=== PATIENT | male | born 1965 | race Caucasian/White ===

== ENCOUNTER 2016-07-29 17:46 | Emergency (ER) | payer MEDICAID ==
[2016-07-29 17:51] VITALS: BP 117/72; PULSE 96; RESP 18; TEMP 98.1; O2SAT 97
--- NOTE | 2016-07-29 17:52 | CPEKG ---
Heart Rate: 96 RR Interval: 625 P-R Interval: 196 QRSD Interval: 88 QT Interval: 364 QTC Interval: 460 P Bucklin: 64 QRS Bucklin: 57 T Wave Bucklin: 64 EKG Severity - NORMAL ECG - EKG Impression: SINUS RHYTHM Electronically Signed By: Gela Nguyễn 29-Jul-2016 20:29:23
--- NOTE | 2016-07-29 18:01 | EDPHY ---
H & P HPI/ROS: CHIEF COMPLAINT: chest pain HISTORY OF PRESENT ILLNESS: Patient is a 51-year-old male with history of hypertension who presents emergency department with a pressure in my chest. Patient stated his pain started approximately 3-4 hours ago. It does not radiate. He has no nausea, vomiting or diaphoresis. No recent trauma or fall. No recent cough or fever. The patient denies leg pain or swelling. Patient is homeless. The patient walked up to EMS is alert them to his chest pain. He was given aspirin and nitroglycerin. REVIEW OF SYSTEMS: My complete review of systems is negative except as mentioned in the HPI. Past Medical/Surgical History: Hypertension Social history: The patient is homeless. The patient smokes and uses alcohol. He denies drug use. Smoking Status: Heavy smoker Physical Exam: Vitals noted GENERAL: Well-appearing, in no acute distress, alert. HEENT: Eyes normal to inspection, normal pharynx, no signs of dehydration. NECK: No thyromegaly, no lymphadenopathy, supple. RESPIRATORY: Clear to auscultation bilaterally, no rales, rhonchi or wheezing. CVS: Regular rate and rhythm, no rubs, murmurs, or gallops. No chest wall tenderness palpation ABDOMEN: Soft, nontender, nondistended, no organomegaly. BACK: Normal to inspection, no CVA tenderness. SKIN: Normal color, no rash, warm, dry. No pallor. EXTREMITIES: No pedal edema, no calf tenderness, no Homans sign or cords, no joint swelling. NEURO/PSYCH: Alert and oriented x3, normal mood and affect, normal motor sensory exam. No obvious cranial nerve deficit. Constitutional: Initial Vital Signs Temperature (C) 36.7 C 07/29/16 17:50 Heart Rate 96 07/29/16 17:50 Respiratory Rate 18 07/29/16 17:50 Blood Pressure 117/72 07/29/16 17:50 O2 Sat (%) 97 07/29/16 17:50 O2 Delivery Mode Room Air Allergies/Adverse Reactions: No Known Allergies Allergy (Verified 07/15/15 21:42) Home Medications: Medication Instructions Recorded NK [No Known Home Meds] 07/29/16 Medical Decision Making ED Course/Re-evaluation: In the emergency department I met EMS on arrival. I took report from the copy and print associate. Laboratory studies, EKG and chest x-ray were ordered. I discussed the plan with the patient and answered all his questions. EKG shows normal sinus rhythm, normal rate, normal axis, normal intervals. There are no ST or T-wave abnormalities. EKG is normal as interpreted by me. Patient's troponin was negative. His lipase was elevated 5 3. D-dimer mildly elevated. Because of this CT angiogram was ordered. I discussed this with the patient and answered all his questions. CT angiogram of the chest: Please refer the dictated report. No pulmonary embolus. I did review the images with the radiologist. I reviewed the patient' s pancreas as well. Appeared normal size. I discussed the result with the patient. On repeat examination he was doing well and he was standing at his bedside going through his belongings. On repeat exam he had no respiratory distress. He had no epigastric tenderness palpation. I discussed all results and the need for close follow-up. The patient was given warnings prior to leaving. He will return with worsening symptoms. Differential Diagnosis: My differential includes but is not limited to ACS, acute MS, myocarditis, pericarditis, aortic aneurysm, dissection, pulmonary embolus, pneumonia, pneumothorax - Data Points Laboratory Results: Laboratory Results 07/29/16 17:34 07/29/16 17:34 07/29/16 17:34 WBC 6.50 10^3/uL (3.80-9.50) RBC 4.54 10^6/uL (4.40-6.38) Hgb 15.9 g/dL (13.7-17.5) Hct 43.8 % (40.0-51.0) MCV 96.5 fL (81.5-99.8) MCH 35.0 H pg (27.9-34.1) MCHC 36.3 g/dL (32.4-36.7) RDW 13.4 % (11.5-15.2) Plt Count 128 L 10^3/uL (150-400) MPV 9.3 fL (8.7-11.7) Neut % (Auto) 21.0 L % (39.3-74.2) Lymph % (Auto) 71.2 H % (15.0-45.0) Sawyer % (Auto) 5.8 % (4.5-13.0) Eos % (Auto) 1.4 % (0.6-7.6) Baso % (Auto) 0.6 % (0.3-1.7) Nucleat RBC Rel Count 0.0 % (0.0-0.2) Absolute Neuts (auto) 1.36 L 10^3/uL (1.70-6.50) Absolute Lymphs (auto) 4.63 H 10^3/uL (1.00-3.00) Absolute Monos (auto) 0.38 10^3/uL (0.30-0.80) Absolute Eos (auto) 0.09 10^3/uL (0.03-0.40) Absolute Basos (auto) 0.04 10^3/uL (0.02-0.10) Absolute Nucleated RBC 0.00 10^3/uL (0-0.01) Immature Gran % 0.0 % (0.0-1.1) Immature Gran # 0.00 10^3/uL (0.00-0.10) D-Dimer 0.90 H ug/mLFEU (0.00-0.50) Sodium 145 H mEq/L (134-144) Potassium 3.7 mEq/L (3.5-5.2) Chloride 104 mEq/L (97-110) Carbon Dioxide 24 mEq/l (22-31) Anion Gap 17 mEq/L (8-16) BUN 9 mg/dL (7-23) Creatinine 0.8 mg/dL (0.7-1.3) Estimated GFR > 60 Glucose 173 H mg/dL (70-100) Calcium 8.4 L mg/dL (8.5-10.4) Total Bilirubin 0.9 mg/dL (0.1-1.4) Conjugated Bilirubin 0.4 mg/dL (0.0-0.5) Unconjugated Bilirubin 0.5 mg/dL (0.0-1.1) AST 156 H IU/L (17-59) ALT 112 H IU/L (21-72) Alkaline Phosphatase 70 IU/L (38-126) Troponin I < 0.012 ng/mL (0-0.034) Total Protein 7.1 g/dL (6.3-8.2) Albumin 3.9 g/dL (3.5-5.0) Lipase 502.0 H IU/L (23-300) Departure - Departure Disposition: Home, Routine, Self-Care Clinical Impression: Chest pain Qualifiers: Chest pain type: precordial pain Qualifier Code: (R07.2) Precordial pain Condition: Good Instructions: Chest Pain (ED) Additional Instructions: Return with increasing chest pain, abdominal pain, nausea vomiting or any other concerns. Referrals: [facility] [Outside] - 2-3 days without fail
[2016-07-29 18:06] LABS: ADD DIFF? NO; ADD MORPH? NO; ADD SCAN? NO; ATYPICAL LYMPHOCYTE FLAG 0 (0-99); FRAGMENT RBC FLAG 0 (0-99); HEMATOCRIT 43.8 % (40.0-51.0); HEMOGLOBIN 15.9 g/dL (13.7-17.5); LEFT SHIFT FLG 0 (0-99); LIPEMIA HEMOLYSIS FLAG 90 (0-99); MEAN CELL HEMOGLOBIN CONCENTR. 36.3 g/dL (32.4-36.7); MEAN CELL VOLUME 96.5 fL (81.5-99.8); MEAN PLATELET VOLUME 9.3 fL (8.7-11.7); PLATELET CLUMPS FLAG 10 (0-99); PLATELET COUNT 128 10^3/uL (150-400); RED BLOOD CELL COUNT 4.54 10^6/uL (4.40-6.38); RED CELL DISTRIBUTION WIDTH 13.4 % (11.5-15.2)
[2016-07-29 18:11] LABS: ALANINE AMINOTRANSFERASE 112 IU/L (21-72); ALBUMIN 3.9 g/dL (3.5-5.0); ALKALINE PHOSPHATASE 70 IU/L (38-126); ANION GAP 17 mEq/L (8-16); ASPARTATE AMINOTRANSFERASE 156 IU/L (17-59); BILIRUBIN,TOTAL 0.9 mg/dL (0.1-1.4); BILIRUBIN-CONJUGATED 0.4 mg/dL (0.0-0.5); BILIRUBIN-UNCONJUGATED 0.5 mg/dL (0.0-1.1); CALCIUM 8.4 mg/dL (8.5-10.4); CARBON DIOXIDE 24 mEq/l (22-31); CHLORIDE 104 mEq/L (97-110); CREATININE 0.8 mg/dL (0.7-1.3); GLOMERULAR FILTRATION RATE > 60; GLUCOSE 173 mg/dL (70-100); POTASSIUM 3.7 mEq/L (3.5-5.2); SODIUM 145 mEq/L (134-144); TOTAL PROTEIN 7.1 g/dL (6.3-8.2)
[2016-07-29 18:23] LABS: TROPONIN I < 0.012 ng/mL (0-0.034)
--- NOTE | 2016-07-29 18:56 | DX ---
Chest, Two Views at 1808 hours History: Chest pain. Comparison: August 2015 Findings: Cardiac silhouette is within normal range. No pneumonia, congestive heart failure, pleural effusion, or pneumothorax. Impression: No acute pulmonary disease.
[2016-07-29] MEDS ORDERED: IOPAMIDOL (ISOVUE 370) 100 ML BTL IV ONE (19:20)
--- NOTE | 2016-07-29 20:20 | CT ---
CT Chest Pulmonary Angiogram With Contrast Enhancement and Multiplanar Reconstructions 2016 at 1931 Hours History: Left-sided chest pain, smoker, elevated D-dimer. Comparison: July 2015. Technique: 1.25-mm axial multidetector helical CT angiogram imaging was performed through the chest w hile 90 mL Isovue-370 were injected intravenously without complication. The images were then transfe rred to an independent workstation where multiplanar and three-dimensional reconstructions were perfo rmed by the interpreting physician and reviewed at multiple windows. Dose reduction techniques were u tilized. CT Pulmonary Angiogram Findings: No CT evidence of definite pulmonary thromboemboli. No aortic aneur ysm or dissection. Heart is normal in size. Coronary atherosclerosis. CT Chest Findings: No pericardial effusion, pleural effusion, or pneumothorax. No suspicious pulmonar y nodules or acute pneumonia. No significant adenopathy. Limited upper abdomen demonstrates hepatic s teatosis. Impressions: 1. No definite pulmonary thromboemboli. 2. No pneumonia, pleural effusion, or pneumothorax. 3. Coronary atherosclerosis. 4. No aortic dissection or aneurysm. 5. Hepatic steatosis. Findings and recommendations discussed with Dr. Nguyễn at 1955 hours.
== END 2016-07-29 20:19 | disposition home or self-care (01) ==
LOC: EDUNIT#
DX: R07.2 Precordial pain (principal); I10 Essential (primary) hypertension; F17.200 Nicotine dependence, unspecified, uncomplicated
CPT/HCPCS: Q9967

== ENCOUNTER 2016-08-08 15:32 | Emergency (ER) | payer MEDICAID ==
[2016-08-08 15:43] VITALS: TEMP 98.2
[2016-08-08] MEDS ORDERED: NS 500 ML IV ONE (15:48)
--- NOTE | 2016-08-08 15:58 | EDPHY ---
H & P Time Seen by Provider: 08/08/16 15:42 HPI/ROS: HPI Leaning to right. 51-year-old male by ambulance. Patient reports that all day he has been walking to the right and leaning to the right. He denies any other complaints. He has a history of alcohol abuse. He is homeless. His last drink was yesterday. ROS: Constitutional: No fever, no chills. No weakness. As above Eyes: No discharge. No changes in vision. ENT: No sore throat. No nasal congestion or rhinorrhea. Respiratory: No cough. No shortness of breath. Cardiac: No chest pain, no palpitations. Gastrointestinal: No abdominal pain, no vomiting, no diarrhea. Genitourinary: No hematuria. No dysuria or increased frequency with urination. Musculoskeletal: No back pain. No neck pain. No myalgias or arthralgias. Skin: No rashes. Neurological: No headache. No focal weakness or altered sensation. As above. Past medical history: Bipolar, alcohol abuse, hypertension, PE, reflux. Social history: Here by himself. Homeless. As above. Denies IV drugs or street drugs. Physical Exam: General Appearance: Alert, no distress. Disheveled. This patient is responding to questions appropriately and in full sentences. This patient appears well-hydrated and well-nourished. Eyes: Pupils equal and round no pallor or injection. No lid edema, erythema or injection. ENT, Mouth: Mucous membranes are moist. The pharyngeal tissues are unremarkable. No edema or swelling. No asymmetry suggestive of abscess. No erythema or exudates. Bilateral external auditory canals are unremarkable. Some cerumen noted. Tympanic membranes are normal. Respiratory: There are no retractions, lungs are clear to auscultation with good air movement bilaterally. Cardiovascular: Regular rate and rhythm. No murmur. Gastrointestinal: Abdomen is soft and nontender, no masses, bowel sounds normal. No focal tenderness at McBurney's point. No Cervantes sign. Neurological: Motor sensory function is grossly intact. Cranial nerves are normal. Gait testing; he would walk normally and in a straight line, then suddenly veer to the right to the right. He denied any sensation of weakness in his right lower extremity during this evaluation but it appeared as if he would suddenly let his right knee start to buckle and give under his weight and then go to the right. On motor testing of his bilateral lower and upper extremities he has symmetric strength. His cerebellar function is normal. Skin: Warm and dry, no rashes. Musculoskeletal: Neck is supple and nontender. Extremities are symmetrical. All joints range without pain or impingement. Psychiatric: No agitation. No depression. Database: EKG: EKG time is 4:09 p.m.; EKG shows a narrow complex normal sinus rhythm with a ventricular rate of 86. The AR, QRS, QT intervals are within normal limits. There are no ST-T wave changes indicative of ischemic or injury pattern. No evidence of right heart strain. Interpreted by me. Imaging: CT scan of head without contrast: No acute pathology. Results were discussed with staff radiologist. Procedures: Emergency department course: IV established. Patient placed on a tin recovery worker. Patient given 500 cc of IV normal saline. EKG performed. Patient stated he was hungry and was given food and drink after CT imaging. 5:20 p.m., patient re-evaluated. Sleeping but easily arousable. Discussed EKG , CT scan and blood work results. Explained that the patient was significantly intoxicated on alcohol. He now admits to drinking through the day. He denies any right-sided weakness. He was up and ambulatory with a normal gait. Repeat neurologic assessment is nonfocal. He told me he was hungry and thirsty. Plan will be to discharge him to the [facility] with Librium prepack and protocol. Follow- up and return to emergency department precautions discussed. All of his questions were answered. He was discharged in good condition to the [facility] by taxi. Differential Diagnosis: The differential diagnosis on this patient includes but is not limited to alcohol intoxication, toxic metabolic problem, CVA, TIA, malingering. This represents a partial list of diagnoses considered. These considerations are based on history, physical exam, past history, reassessment and diagnostic testing. Smoking Status: Heavy smoker Constitutional: Initial Vital Signs Temperature (C) 36.8 C 08/08/16 15:41 Heart Rate 84 08/08/16 15:41 Respiratory Rate 16 08/08/16 15:41 Blood Pressure 117/77 08/08/16 15:41 O2 Sat (%) 93 08/08/16 15:41 O2 Delivery Mode Room Air Allergies/Adverse Reactions: No Known Allergies Allergy (Verified 07/15/15 21:42) Home Medications: Medication Instructions Recorded NK [No Known Home Meds] 07/29/16 Medical Decision Making - Data Points Laboratory Results: Laboratory Results 08/08/16 16:15 08/08/16 16:15 08/08/16 16:15 WBC 5.61 10^3/uL (3.80-9.50) RBC 4.60 10^6/uL (4.40-6.38) Hgb 15.7 g/dL (13.7-17.5) Hct 44.5 % (40.0-51.0) MCV 96.7 fL (81.5-99.8) MCH 34.1 pg (27.9-34.1) MCHC 35.3 g/dL (32.4-36.7) RDW 12.9 % (11.5-15.2) Plt Count 122 L 10^3/uL (150-400) MPV 8.0 L fL (8.7-11.7) Neut % (Auto) 33.9 L % (39.3-74.2) Lymph % (Auto) 56.9 H % (15.0-45.0) [place] % (Auto) 6.1 % (4.5-13.0) Eos % (Auto) 2.0 % (0.6-7.6) Baso % (Auto) 0.7 % (0.3-1.7) Nucleat RBC Rel Count 0.0 % (0.0-0.2) Absolute Neuts (auto) 1.91 10^3/uL (1.70-6.50) Absolute Lymphs (auto) 3.19 H 10^3/uL (1.00-3.00) Absolute Monos (auto) 0.34 10^3/uL (0.30-0.80) Absolute Eos (auto) 0.11 10^3/uL (0.03-0.40) Absolute Basos (auto) 0.04 10^3/uL (0.02-0.10) Absolute Nucleated RBC 0.00 10^3/uL (0-0.01) Immature Gran % 0.4 % (0.0-1.1) Immature Gran # 0.02 10^3/uL (0.00-0.10) Sodium 149 H mEq/L (134-144) Potassium 4.0 mEq/L (3.5-5.2) Chloride 111 H mEq/L (97-110) Carbon Dioxide 26 mEq/l (22-31) Anion Gap 12 mEq/L (8-16) BUN 12 mg/dL (7-23) Creatinine 1.0 mg/dL (0.7-1.3) Estimated GFR > 60 Glucose 121 H mg/dL (70-100) Calcium 7.6 L mg/dL (8.5-10.4) Ethyl Alcohol 414 H* mg/dL (0-10) Medications Given: Discontinued Medications Sodium Chloride (Ns) 500 mls @ 0 mls/hr IV ONCE ONE PRN Reason: Wide Open Stop: 08/08/16 15:49 Last Admin: 08/08/16 15:56 Dose: 500 mls Departure - Departure Disposition: Home, Routine, Self-Care Clinical Impression: Acute alcohol intoxication Condition: Good Instructions: Alcohol Intoxication (ED) Additional Instructions: Read and follow provided instructions. Librium to be administered by the [facility] staff. Do not abuse alcohol. Follow-up with your primary care physician in 1-2 days at the [facility], walk-in clinic for re-evaluation. Return to the emergency department for worsening symptoms or other serious concerns. Referrals: [facility] [Outside] - As per Instructions [facility] [Outside] - As per Instructions
--- NOTE | 2016-08-08 16:11 | CPEKG ---
Heart Rate: 86 RR Interval: 698 P-R Interval: 192 QRSD Interval: 82 QT Interval: 364 QTC Interval: 436 P Herrick: 74 QRS Herrick: 0 T Wave Herrick: 63 EKG Severity - OTHERWISE NORMAL ECG - EKG Impression: SINUS RHYTHM EKG Impression: VENTRICULAR PREMATURE COMPLEX Electronically Signed By: Javier Quick 09-Aug-2016 01:03:41
[2016-08-08 16:28] LABS: % IMMATURE GRANULYOCYTES 0.4 % (0.0-1.1); ABSOLUTE IMMATURE GRANULOCYTES 0.02 10^3/uL (0.00-0.10); ADD DIFF? NO; ADD MORPH? NO; ADD SCAN? NO; ATYPICAL LYMPHOCYTE FLAG 0 (0-99); FRAGMENT RBC FLAG 0 (0-99); HEMATOCRIT 44.5 % (40.0-51.0); HEMOGLOBIN 15.7 g/dL (13.7-17.5); LEFT SHIFT FLG 0 (0-99); LIPEMIA HEMOLYSIS FLAG 90 (0-99); MEAN CELL HEMOGLOBIN 34.1 pg (27.9-34.1); MEAN CELL HEMOGLOBIN CONCENTR. 35.3 g/dL (32.4-36.7); MEAN CELL VOLUME 96.7 fL (81.5-99.8); PLATELET CLUMPS FLAG 0 (0-99); PLATELET COUNT 122 10^3/uL (150-400); RED CELL DISTRIBUTION WIDTH 12.9 % (11.5-15.2)
[2016-08-08 16:47] LABS: ANION GAP 12 mEq/L (8-16); CALCIUM 7.6 mg/dL (8.5-10.4); CARBON DIOXIDE 26 mEq/l (22-31); CHLORIDE 111 mEq/L (97-110); GLOMERULAR FILTRATION RATE > 60; GLUCOSE 121 mg/dL (70-100); SODIUM 149 mEq/L (134-144)
--- NOTE | 2016-08-08 16:57 | CT ---
CT of the Head (Without Contrast) Indication: Leaning towards the right. EtOH. Technique: Standard noncontrast head CT protocol utilizing 5 mm thick collimated slices and field of view 23 cm. Dose reduction techniques were utilized. Findings: No intracranial hemorrhage or mass. There is mild periventricular white matter disease. Jacob tricles are normal in size. Vessels are of symmetric density. Paranasal sinuses are clear. Impression: Nothing acute intracranially. Findings were discussed with Dr. Javier Ojeda.
[2016-08-08 17:04] LABS: ETHANOL SERUM 414 mg/dL (0-10)
[2016-08-08] MEDS ORDERED: CHLORDIAZEPOXIDE 25MG PREPK#6 BTL TAKEHOME ONE (17:57)
[2016-08-08 18:13] VITALS: BP 120/76; PULSE 101; RESP 18; O2SAT 92
== END 2016-08-08 18:39 | disposition home or self-care (01) ==
LOC: EDUNIT#
DX: F10.129 Alcohol abuse with intoxication, unspecified (principal); I10 Essential (primary) hypertension; F17.200 Nicotine dependence, unspecified, uncomplicated
CPT/HCPCS: G0480

== ENCOUNTER 2016-08-11 16:27 | Emergency (ER) | payer MEDICAID ==
[2016-08-11 16:30] VITALS: BP 145/77; PULSE 111; RESP 20; TEMP 97.2; O2SAT 93
--- NOTE | 2016-08-11 16:31 | EDPHY ---
HPI/HX/ROS/PE/MDM Narrative: CHIEF COMPLAINT: Intoxication, combative HPI: The patient is a homeless 51 y/o male arriving via EMS due to intoxication and combativeness. The patient has been rapidly swinging back and forth between combative and threatening to apologetic with EMS. He is complaining about not having eaten in 2 days. EMS says he smells of alcohol and was unable to stand or walk on scene, but denies alcohol or illicit drug use. He is oriented to name only and thinks it is 1990. Friends on scene told EMS he fell and struck his head, though EMS didn't see external evidence of trauma. He was largely uncooperative with EMS throughout transport. Per EMS, he described himself as "Ronald Hitler" and "psychotic murderer" and made several threatening gestures and statements to them. [facility] removed several weapons from him prior to transport. While in the ED, he has been antagonizing staff threatening to fight people and yelling "I've killed people" and "can you get me something fucking to eat!" "right fucking now!" REVIEW OF SYSTEMS: Aside from elements discussed in the HPI, a comprehensive 10-point review of systems was reviewed and is negative. PMH: Alcoholism, PE/DVT, bipolar disorder, hypertension, reflux Prior medical records reviewed including ED visit 08/08/16 for "leaning to the right" and admission 06/21/15 for shortness of breath and chest pain. SOCIAL HISTORY: Homeless, smoker PHYSICAL EXAM: General:Patient is alert, aggressive, in no acute distress. ENT:Eyes are normal to inspection. ENT inspection normal. Neck: Normal inspection. Full range of motion. Respiratory:No respiratory distress. Breath sounds normal bilaterally. Cardiovascular: Regular rate and rhythm. Strong peripheral pulses. Normal cap refill. Abdomen:The abdomen is nontender to palpation. There are no peritoneal signs. There are normal bowel sounds. Back: Normal to inspection. No tenderness to palpation. Skin: Normal color. No rash. Warm and dry. Extremities: Normal appearance. Full range of motion. Neuro: Oriented x1. Moving all 4 extremities, walking in and out of room. ED Course: EtOH serum ordered. Patient has been yelling threats at staff while in the ED and pacing in and out of the room. [facility] has been contacted and will take him to the [facility]. - Data Points Laboratory Results: 08/11/16 16:25 Ethyl Alcohol Pending General Initial Vital Signs: Initial Vital Signs Temperature (C) 36.2 C 08/11/16 16:27 Heart Rate 111 H 08/11/16 16:27 Respiratory Rate 20 08/11/16 16:27 Blood Pressure 145/77 H 08/11/16 16:27 O2 Sat (%) 93 08/11/16 16:27 O2 Delivery Mode Room Air Allergies/Adverse Reactions: No Known Allergies Allergy (Verified 07/15/15 21:42) Home Medications: Medication Instructions Recorded NK [No Known Home Meds] 07/29/16 Departure - Departure Disposition: Home, Routine, Self-Care Clinical Impression: Alcohol intoxication, Aggression Condition: Good Instructions: Alcohol Intoxication (ED) Additional Instructions: Go directly to the [facility]. Referrals: [facility] [Outside] - As per Instructions Report Scribed for: Rafat Stewart Report Scribed by: Dariela Arrieta Date of Report: 08/11/16 Time of Report: 16:29 Physician Review and Approval Statement: Portions of this note were transcribed by an ED scribe. I personally performed the history, physical exam, and medical decision making; and confirm the accuracy of the information in the transcribed note.
[2016-08-11 17:00] LABS: ETHANOL SERUM 460 mg/dL (0-10)
== END 2016-08-11 16:57 | disposition home or self-care (01) ==
DX: F10.129 Alcohol abuse with intoxication, unspecified (principal); F91.8 Other conduct disorders; I10 Essential (primary) hypertension; F17.200 Nicotine dependence, unspecified, uncomplicated
CPT/HCPCS: G0480

== ENCOUNTER 2016-08-18 23:54 | Emergency (ER) | payer MEDICAID ==
[2016-08-19] VITALS: BP 135/64; PULSE 81; RESP 16; TEMP 97.9; O2SAT 96
--- NOTE | 2016-08-19 00:05 | EDPHY ---
H & P HPI/ROS: HPI The patient presents with alcohol intoxication. He was found heavily intoxicated at a warming halfway. 911 was called. He said that he had been drinking a lot of hard alcohol throughout the course of the day today. He was nonambulatory. He denies any other complaints. In the ambulance, glucose was checked and it was 125. He was put on supplemental oxygen.. REVIEW OF SYSTEMS Constitutional: No fever, no chills. Eyes: No discharge. ENT: No sore throat. Cardiovascular: No chest pain, no palpitations. Respiratory: No cough, no shortness of breath. Gastrointestinal: No abdominal pain, no vomiting. Genitourinary: No hematuria. Musculoskeletal: No back pain. Skin: No rashes. Neurological: No headache. PHYSICAL General Appearance: Alert, obviously intoxicated Eyes: Pupils equal and round no pallor or injection ENT, Mouth: Mucous membranes moist Respiratory: There are no retractions, lungs are clear to auscultation Cardiovascular: Regular rate and rhythm Gastrointestinal: Abdomen is soft and non-tender, no masses, bowel sounds normal Neurological: A&O, moves all extremities Skin: Warm and dry, no rashes Musculoskeletal: Neck is supple non tender Extremities: symmetrical, full range of motion Psychiatric: Patient is oriented X 3, there is no agitation Source: Patient Exam Limitations: No limitations - Personal History Tetanus Vaccine Date: 2014 - Medical/Surgical History Hx Asthma: No Hx Chronic Respiratory Disease: No Hx Diabetes: No Hx Cardiac Disease: No Hx Renal Disease: No Hx Cirrhosis: No Hx Alcoholism: Yes Hx HIV/AIDS: No Hx Splenectomy or Spleen Trauma: No Other PMH: Bipolar, ETOH, HTN, PE, reflux - Social History Smoking Status: Heavy smoker Constitutional: Initial Vital Signs Temperature (C) 36.6 C 08/18/16 23:57 Heart Rate 81 08/18/16 23:57 Respiratory Rate 16 08/18/16 23:57 Blood Pressure 135/64 H 08/18/16 23:57 O2 Sat (%) 96 08/18/16 23:57 O2 Delivery Mode Room Air Allergies/Adverse Reactions: No Known Allergies Allergy (Verified 08/18/16 23:57) Home Medications: Medication Instructions Recorded NK [No Known Home Meds] 07/29/16 Medical Decision Making ED Course/Re-evaluation: 11:45 p.m.- I met the paramedics at the bedside to obtain their report. The patient appears stable. 12:00 a.m.- The patient was able to ambulate to the bathroom without difficulty. He will be [facility], [facility] to [facility] or a warming halfway. 12:20 a.m.- Police came to take the patient to a warming halfway. Departure - Departure Disposition: Home, Routine, Self-Care Clinical Impression: Alcohol dependence Alcohol intoxication Qualifiers: Complication of substance-induced condition: uncomplicated Qualifier Code: ( F10.120) Alcohol abuse with intoxication, uncomplicated Condition: Good Instructions: Alcohol Intoxication (ED) Referrals: [facility] [Outside] - As per Instructions
== END 2016-08-19 00:23 | disposition home or self-care (01) ==
LOC: EDUNIT#
DX: F10.220 Alcohol dependence with intoxication, uncomplicated (principal); F17.200 Nicotine dependence, unspecified, uncomplicated; I10 Essential (primary) hypertension

== ENCOUNTER 2016-08-21 09:47 | Emergency (ER) | payer MEDICAID ==
[2016-08-21 10:04] VITALS: RESP 18
[2016-08-21] MEDS ORDERED: SKIN ADHESIVE (DERMABOND) 1 EACH TP ONE (10:12)
--- NOTE | 2016-08-21 10:12 | EDPHY ---
H & P Stated Complaint: etoh, unable to ambulate, uncooperative - Personal History Current Tetanus/Diphtheria Vaccine: Yes Current Tetanus Diphtheria and Acellular Pertussis (TDAP): Yes Tetanus Vaccine Date: 2014 - Medical/Surgical History Hx Asthma: No Hx Chronic Respiratory Disease: No Hx Diabetes: No Hx Cardiac Disease: No Hx Renal Disease: No Hx Cirrhosis: No Hx Alcoholism: Yes Hx HIV/AIDS: No Hx Splenectomy or Spleen Trauma: No Other PMH: Bipolar, ETOH, HTN, PE, reflux - Social History Smoking Status: Heavy smoker Time Seen by Provider: 08/21/16 10:03 HPI/ROS: CHIEF COMPLAINT: suspected alcohol intoxication HISTORY OF PRESENT ILLNESS: 51-year-old male brought in by EMS for suspected alcohol intoxication after his friends called 911. History of homelessness and alcoholism. He had was heard entering from the ambulance bay yelling, belligerent, aggressive, threatening staff. there are no reports of pre- hospital assault or fall. When I enter the room to examine the patient initially at 10:03 a.m. he is laying in a prone position by the front door of room 3, appears to have gotten himself out of bed and then had a syncopal episode or fallen. He is unable provide history as he repeatedly curses at me. He has a chin laceration and there is some blood on floor. He is cursing. REVIEW OF SYSTEMS: A ten point review of systems was performed and is negative with the exception of the items mentioned in the HPI PAST MEDICAL/SURGICAL HISTORY: Homeless. Unknown further past medical SOCIAL HISTORY: Per his friends, positive alcohol use PHYSICAL EXAM 1) GENERAL: poorly kept, smells of urine, laying in a prone position on the floor, placed back in the bed by ER staff. He is cursing, yelling 2) HEAD: Normocephalic, atraumatic 3) HEENT: Pupils equal, round, reactive to light bilaterally. Negative Horners. Nasopharynx, oropharynx, clear. No deformity or angulation of nose. No septal hematoma. No rhinorrhea. No oral trauma. Ears bilaterally with normal tympanic membranes. No hemotympanum. No fluid or blood in the external auditory canal. No raccoon eyes. No Bearden sign. Poor dentition with no signs of acute intraoral trauma TMJ bilaterally nontender, No intraoral bleeding ,facial bones nontender including the zygomatic arch, maxilla mandible. he has a left chin laceration measuring 2.5 cm. 4) NECK: No cervical collar is on. Cervical collar is placed at that time due to mechanism and suspected alcohol use 5) LUNGS: Clear to auscultation bilaterally, no wheezes, no rhonchi, no retractions. No obvious signs of trauma. No chest wall pain. No flaring, no grunting. Moving symmetrically. No crepitus. 6) HEART: Regular rate and rhythm, 7) ABDOMEN: No guarding, no rebound, no focal tenderness, no peritoneal signs, no signs of trauma, no ecchymosis 8) MUSCULOSKELETAL: Moving all extremities, no focal areas of tenderness, no obvious trauma. 9) BACK: No midline vertebral tenderness, no fluctuance, no step-off, no obvious trauma, no visual or palpable abnormality. 10) SKIN: chin laceration measuring 1 cm DIFFERENTIAL DIAGNOSIS: Not necessarily in any particular order, my differential diagnosis includes, but is not limited to, concussion, skull fracture, intraparenchymal contusion, subarachnoid, subdural and epidural hematoma, cervical fracture, mandible fracture. The patient understands that this diagnosis is provisional and can never be 100% accurate. (Evaristo Yi) Constitutional: Initial Vital Signs Temperature (C) 36.4 C 08/21/16 09:47 Heart Rate 104 H 08/21/16 09:47 Respiratory Rate 18 08/21/16 09:47 Blood Pressure 96/63 L 08/21/16 09:47 O2 Sat (%) 94 08/21/16 09:47 O2 Delivery Mode Room Air Allergies/Adverse Reactions: No Known Allergies Allergy (Verified 08/18/16 23:57) Home Medications: Medication Instructions Recorded NK [No Known Home Meds] 07/29/16 Medical Decision Making - Diagnostics Imaging: Noncontrast Head CT CT Facial Bones 1017 hours History: Alcohol use. Trauma. Headache and neck pain. Hit anterior jaw. Technique: Standard noncontrast head CT protocol utilizing axial images was acquired through the calvarium. Images were reconstructed in multiple planes as well. Dose reduction techniques were utilized. Thin spiral images were obtained through the face from just below the mandible to above the frontal sinuses. The data were reconstructed in the sagittal and coronal plane. I also performed 3D reconstructions at the workstation to help the ER physician and surgeon visualize fractures if surgery is contemplated. Dose reduction techniques were utilized. Findings: CT Head: The cerebral parenchyma has a normal attenuation throughout. There are no masses, intracranial hemorrhage, subdural collections, or evidence of recent cerebral infarction. The bones are unremarkable. The frontal sinuses remain opacified. Mild mucosal thickening is present associated with scattered ethmoid air cells. There is also mild mucosal thickening inferior left maxillary sinus stable in appearance. The sphenoid sinuses are clear as well as mastoid air cells.. CT facial bones: The facial bones are intact without evidence of fracture. The orbital globes are normal in contour. Soft tissues demonstrate no significant abnormality. The patient is edentulous off the alveolar ridge. The 4 front incisors remain as well as the right canine tooth. Left premolar and first molar tooth remain in place on the mandible. There is no mandible fracture or loosening of the remaining teeth. Dictated By: Marcus Lee MD CT Cervical Spine 1017 hours History: Recent trauma. Evaluate for possible cervical spine injury. Technique: Spiral imaging was obtained from the base of skull to the upper chest. Images were reconstructed at 1.25 mm slice thickness. Images were reconstructed in multiple planes. Dose reduction techniques were utilized. Findings: Vertebral body heights are well maintained. There are no subluxations. No fractures are seen. Moderate right-sided facet hypertrophy is noted at the C2-C3. The remainder of the facet joints are relatively normal. Incidental disk bulge is noted at C6-C7 with mild to moderate spinal stenosis suspected. Paravertebral soft tissues demonstrate no significant abnormality. Dictated By: Marcus Lee MD Images reviewed by myself (Evarisot Yi) Procedures: Procedure: Laceration repair with tissue adhesive Verbal consent was obtained from the patient. The chin laceration was scrubbed and explored to its base with a gloved finger. No foreign body seen, no foreign bodies palpated. There were no deep structures involved. The wound was repaired with tissue adhesive. The procedure was performed by myself. Patient has been informed that scarring will occur, although every effort has been made to minimize this. (Evaristo Yi) ED Course/Re-evaluation: 10:10 a.m.: I entered the patient's room for initial examination in room 3 of the emergency department he was found lying in a prone position with what appears to be a new chin laceration . He was placed in a cervical collar placed back in the bed and will be imaged. 10:35 a.m.: Re-evaluation he has self-extricated from a cervical collar and is threatening assault if I attempt to put it back on. Breathalyzer alcohol is 359. Awaiting CT imaging results 11:20 a.m.: His wound has been closed. He is sleeping. He is answering questions appropriately albeit cursing , yelling, threatening emergency department staff but no evidence of altered mental status. Doubt delirium tremens. No seizure activity. Plan [facility]. Case discussed Dr. Gladis Montalvo ([facility]) Other Provider: The patient wasevaluatedand managed by themsdlevel provider. Idiscussed the patient's presentation and course with thephysicianassistantor nurse practitionerand agree with theevaluation. My co-signature indicates that I have reviewed this chart and I agree with the findings and plan of care as documented. I am the secondary supervisingphysician. (Gladis Montalvo) - Data Points Medications Given: Discontinued Medications Octyl Cyanoacrylate (Dermabond) 1 each TP EDNOW ONE Stop: 08/21/16 10:13 Last Admin: 08/21/16 10:53 Dose: 1 each Departure - Departure Disposition: Home, Routine, Self-Care Clinical Impression: Alcohol intoxication Qualifiers: Complication of substance-induced condition: uncomplicated Qualified Code(s): F10.120 - Alcohol abuse with intoxication, uncomplicated Chin laceration Qualifiers: Encounter type: initial encounter Qualified Code(s): S01.81XA - Laceration without foreign body of other part of head, initial encounter Condition: Good Instructions: Laceration (ED), Alcohol Intoxication (ED), Skin Adhesive Care ( ED) Additional Instructions: ALTHOUGH THERE IS NO EVIDENCE OF SERIOUS HEAD INJURY AT THIS TIME, DELAYED SIGNS CAN APPEAR 24 TO 48 HOURS AFTER INJURY. WE RECOMMEND THAT YOU DESIGNATE A FRIEND OR FAMILY MEMBER TO OBSERVE YOU OVER THE NEXT FEW DAYS TO ENSURE THAT YOUR CONDITION IS PROGRESSING NORMALLY. PLEASE RETURN TO THE EMERGENCY DEPARTMENT (ED) IMMEDIATELY IF YOU HAVE INCREASED HEADACHE, PERSISTENT HEADACHE , VOMITING, WEAKNESS, CONFUSION OR VISUAL PROBLEMS. Referrals: [facility] [Outside] - 1-2 days without fail
--- NOTE | 2016-08-21 11:00 | CT ---
Noncontrast Head CT CT Facial Bones 1017 hours History: Alcohol use. Trauma. Headache and neck pain. Hit anterior jaw. Technique: Standard noncontrast head CT protocol utilizing axial images was acquired through the ca lvarium. Images were reconstructed in multiple planes as well. Dose reduction techniques were utiliz ed. Thin spiral images were obtained through the face from just below the mandible to above the frontal sinuses. The data were reconstructed in the sagittal and coronal plane. I also performed 3D reconst ructions at the workstation to help the ER physician and surgeon visualize fractures if surgery is c ontemplated. Dose reduction techniques were utilized. Findings: CT Head: The cerebral parenchyma has a normal attenuation throughout. There are no masses, intracran ial hemorrhage, subdural collections, or evidence of recent cerebral infarction. The bones are unre markable. The frontal sinuses remain opacified. Mild mucosal thickening is present associated with s cattered ethmoid air cells. There is also mild mucosal thickening inferior left maxillary sinus stab le in appearance. The sphenoid sinuses are clear as well as mastoid air cells.. CT facial bones: The facial bones are intact without evidence of fracture. The orbital globes are no rmal in contour. Soft tissues demonstrate no significant abnormality. The patient is edentulous off the alveolar ridge. The 4 front incisors remain as well as the right canine tooth. Left premolar and first molar tooth remain in place on the mandible. There is no mandible fracture or loosening of th e remaining teeth. Impression: 1. No acute intracranial abnormality seen. 2. Stable frontal, ethmoid, and left inferior maxillary sinus disease. 3. No evidence of facial bone fracture. Findings were discussed by telephone with Rafat Yi PA-C at 1058 hrs.
--- NOTE | 2016-08-21 11:04 | CT ---
CT Cervical Spine 1017 hours History: Recent trauma. Evaluate for possible cervical spine injury. Technique: Spiral imaging was obtained from the base of skull to the upper chest. Images were recons tructed at 1.25 mm slice thickness. Images were reconstructed in multiple planes. Dose reduction daxa hniques were utilized. Findings: Vertebral body heights are well maintained. There are no subluxations. No fractures are se en. Moderate right-sided facet hypertrophy is noted at the C2-C3. The remainder of the facet joints are relatively normal. Incidental disk bulge is noted at C6-C7 with mild to moderate spinal stenosis suspected. Paravertebral soft tissues demonstrate no significant abnormality. Impression: 1. No acute osseous abnormality seen about the cervical spine. 2. Right-sided facet hypertrophy at C2-C3. 3. Incidental mild to moderate disk bulge at C6-C7. Findings were discussed by telephone with Rafat Yi PA-C at 1058 hrs.
[2016-08-21 11:31] VITALS: BP 96/63; PULSE 104; TEMP 97.5; O2SAT 94
== END 2016-08-21 11:55 | disposition home or self-care (01) ==
LOC: EDUNIT#
PROC: 0HQ1XZZ Repair Face Skin, External Approach (ICD-10-PCS; principal; 2016-08-21)
DX: S01.81XA Laceration without foreign body of other part of head, initial encounter (principal); F10.120 Alcohol abuse with intoxication, uncomplicated; I10 Essential (primary) hypertension; F17.200 Nicotine dependence, unspecified, uncomplicated; X58.XXXA Exposure to other specified factors, initial encounter
CPT/HCPCS: L0172

== ENCOUNTER 2016-09-08 03:06 | Emergency (ER) | payer MEDICAID ==
--- NOTE | 2016-09-08 03:21 | EDPHY ---
H & P Time Seen by Provider: 09/08/16 03:10 HPI/ROS: Chief complaint: Alcohol and Almazan stay intoxication, agitation HPI: 51-year-old male brought in by EMS and police having been found intoxicated and belligerent on the street. Patient admitted to using alcohol and Almazan D this morning. He has been argumentative and belligerent with police but has not been combative. He has been eating to me that he has drunk a lot of vodka and some acid. States he is not currently hallucinating and that he has "finished his trip". Right now he is asking me if I would like to republican with him. He denies injury. No falls. No nausea or vomiting. No chest pain or shortness of breath. Denies any other ingestions. ROS: 10 point Review of Systems is negative except as noted in the HPI. Past medical history: Alcoholism Medications: None Allergies: No known drug allergies Physical exam: Gen: Awake, Alert, slurred speech, pleasant and friendly HEENT: Nose: no rhinorrhea Eyes: PERRLA, EOMI Mouth: Moist mucosa Neck: Supple, no JVD Chest: nontender, lungs clear to auscultation Heart: S1, S2 normal, no murmur Abd: Soft, non-tender, no guarding Back: no CVA tenderness, no midline tenderness Ext: no edema, non-tender Skin: no rash Neuro: CN II-XII intact, Sensation grossly intact, Strength 5/5 in bilateral upper and lower extremities - Personal History Tetanus Vaccine Date: 2014 - Medical/Surgical History Hx Asthma: No Hx Chronic Respiratory Disease: No Hx Diabetes: No Hx Cardiac Disease: No Hx Renal Disease: No Hx Cirrhosis: No Hx Alcoholism: Yes Hx HIV/AIDS: No Hx Splenectomy or Spleen Trauma: No Other PMH: Bipolar, ETOH, HTN, PE, reflux - Social History Smoking Status: Heavy smoker Constitutional: Initial Vital Signs Temperature (C) 36.4 C 09/08/16 03:23 Heart Rate 100 09/08/16 03:23 Respiratory Rate 16 09/08/16 03:23 Blood Pressure 106/74 09/08/16 03:23 O2 Sat (%) 94 09/08/16 03:23 O2 Delivery Mode Room Air Allergies/Adverse Reactions: No Known Allergies Allergy (Verified 09/08/16 03:22) Home Medications: Medication Instructions Recorded NK [No Known Home Meds] 07/29/16 Medical Decision Making ED Course/Re-evaluation: Patient is ambulatory being to the bathroom unassisted. He is awake alert. He has not required any medications. He is safe for discharge. Departure - Departure Disposition: Home, Routine, Self-Care Clinical Impression: Polysubstance abuse Condition: Good Instructions: Polysubstance Abuse (ED), Alcohol Intoxication (ED) Additional Instructions: Please try to decrease your alcohol consumption. Referrals: NONE *PRIMARY CARE P,. [Primary Care Provider] - As per Instructions [facility],. [Clinic] - As per Instructions
[2016-09-08 03:24] VITALS: RESP 16
[2016-09-08 09:14] VITALS: BP 100/54; PULSE 85; TEMP 97.7; O2SAT 98
== END 2016-09-08 09:32 | disposition home or self-care (01) ==
LOC: EDUNIT#
DX: F19.10 Other psychoactive substance abuse, uncomplicated (principal); I10 Essential (primary) hypertension; F17.200 Nicotine dependence, unspecified, uncomplicated

== ENCOUNTER 2016-09-10 18:29 | Emergency (ER) | payer MEDICAID ==
[2016-09-10 18:40] VITALS: BP 108/61; PULSE 74; RESP 16; TEMP 97.9; O2SAT 93
[2016-09-10] MEDS ORDERED: NS 1,000 ML IV ONE (19:00)
--- NOTE | 2016-09-10 19:07 | EDPHY ---
H & P Stated Complaint: CP, ETOH Time Seen by Provider: 09/10/16 18:54 HPI/ROS: CHIEF COMPLAINT: chest pain HISTORY OF PRESENT ILLNESS: patient complains of left-sided chest pain that started approximately 2:00 p.m.. This while he was smoking. Says it is mild to moderate pain that comes and goes. Lasts for only a few minutes and then spontaneously resolved. No predictable modifying factors for this. No radiating pain. No nausea, vomiting or diaphoresis. No shortness of breath. He does have a persistent cough over the past few days. No fever chills. no abdominal pain. No urinary complaints. Has a history of hypertension and previous chest pains with multiple workups. No other associated complaints or modifying factors. He is asking for a sandwich that his primary complaint more so than the chest pain. REVIEW OF SYSTEMS: Ten systems reviewed and are negative unless otherwise noted in the HPI EXAMINATION General Appearance: Alert, no distress , unkempt Head: normocephalic, atraumatic Eyes: Pupils equal and round, no conjunctival pallor or injection ENT, Mouth: Mucous membranes moist. Uvula midline. No erythema or edema. Neck: Normal inspection, supple, non-tender Respiratory: Scattered rhonchi. No wheezing or crackles. No diminishment. No distress. Cardiovascular: Regular rate and rhythm . No murmur. Pulses intact distally and symmetrically. Gastrointestinal: Abdomen is soft and nontender Back: non-tender, no bony abnormalities Neurological: A&O, nonfocal, Strength is symmetric in all limbs. Skin: Warm and dry, no rash Extremities: Nontender, no pedal edema Psychiatric: Mood and affect normal DIFFERENTIAL DIAGNOSES: Including but not limited to ACS, bronchitis, pneumonia, chest pain NOS MDM: Examination vital signs are within normal limits. Patient has an extensive history of chest pain complaints with multiple workups. The patient feels that this is a mild pain. His 1st question was actually for food and he is less concerned about the chest pain and having a meal. 7:30 p.m. notified by RN that the patient would like to be discharged home. He informed me that he just wants to leave and "get the fuck out of here." Troponin is negative. I discussed with him that his chest pain has only been present for 5 hours. He does have negative troponin and has a frequent history of this. It is likely that this is not an ACS scenario, but I informed him that we cannot be certain of this. The patient would like to be discharged home despite this. Chest x-ray does not show any definitive pneumonia, but given his auscultation I will place him on Zithromax prophylactically for the possibility of bronchitis versus community-acquired pneumonia. He is instructed follow up with [facility] and return to the ER should chest pain return. EKG: Interpreted by Dr. Hawkins Rate is 85 beats per minute. The HI interval 180. QTC interval 380. Normal axis. No ST depression or elevation. T-waves inverted only in AVR and V1. We will write SUPERVISION: Patient was evaluated in conjunction with the supervising physician. Please see their note for details. Source: Patient, Old records - Personal History Current Tetanus/Diphtheria Vaccine: Yes Tetanus Vaccine Date: 2014 - Medical/Surgical History Hx Asthma: No Hx Chronic Respiratory Disease: No Hx Diabetes: No Hx Cardiac Disease: No Hx Renal Disease: No Hx Cirrhosis: No Hx Alcoholism: Yes Hx HIV/AIDS: No Hx Splenectomy or Spleen Trauma: No Other PMH: Bipolar, ETOH, HTN, PE, reflux - Social History Smoking Status: Heavy smoker Constitutional: Initial Vital Signs Temperature (C) 97.9 F 09/10/16 18:39 Heart Rate 74 09/10/16 18:39 Respiratory Rate 16 09/10/16 18:39 Blood Pressure 108/61 09/10/16 18:39 O2 Sat (%) 93 09/10/16 18:39 O2 Delivery Mode Room Air Allergies/Adverse Reactions: No Known Allergies Allergy (Verified 09/08/16 03:22) Home Medications: Medication Instructions Recorded Azithromycin [Zithromax] 250 mg PO DAILY #6 tab 09/10/16 Medical Decision Making - Data Points Laboratory Results: 09/10/16 18:36 Troponin I < 0.012 ng/mL ng/mL (0-0.034) Medications Given: Discontinued Medications Sodium Chloride (Ns) 1,000 mls @ 0 mls/hr IV ONCE ONE PRN Reason: Wide Open Stop: 09/10/16 19:01 Last Admin: 09/10/16 19:21 Dose: 1,000 mls Departure - Departure Disposition: Home, Routine, Self-Care Clinical Impression: Cough Chest pain Qualifiers: Chest pain type: unspecified Qualified Code(s): R07.9 - Chest pain, unspecified Condition: Good Instructions: Chest Pain (ED) Additional Instructions: Follow-up with [facility] for further care. Return to the ER for worsening pain or cough Referrals: Kalani Marquez MD [Medical Doctor] - As per Instructions Patient,NotPresent [Primary Care Provider] - As per Instructions [facility],. [Clinic] - As per Instructions Prescriptions: Azithromycin [Zithromax] 250 mg PO DAILY #6 tab
--- NOTE | 2016-09-13 22:58 | CPEKG ---
Heart Rate: 85 RR Interval: 706 P-R Interval: 180 QRSD Interval: 84 QT Interval: 380 QTC Interval: 452 P [place]: 46 QRS [place]: 29 T Wave [place]: 55 EKG Severity - NORMAL ECG - EKG Impression: SINUS RHYTHM Electronically Signed By: Nani Jc 14-Sep-2016 10:27:17
== END 2016-09-10 19:38 | disposition home or self-care (01) ==
LOC: EDUNIT#
DX: R07.9 Chest pain, unspecified (principal); R05 Cough; I10 Essential (primary) hypertension; F17.200 Nicotine dependence, unspecified, uncomplicated

== ENCOUNTER 2016-09-21 21:23 | Emergency (ER) | payer MEDICAID ==
[2016-09-21 21:34] VITALS: TEMP 98.2
--- NOTE | 2016-09-21 21:45 | EDPHY ---
H & P Time Seen by Provider: 09/21/16 21:36 HPI/ROS: CHIEF COMPLAINT: Alcohol intoxication HISTORY OF PRESENT ILLNESS: 51-year-old male with a history of bipolar disorder and alcohol abuse presents with alcohol intoxication. He has been drinking heavily today. He apparently thought he was going to have a seizure so 911 was called. He has not had a seizure. He requests to go to the [facility]. REVIEW OF SYSTEMS: Constitutional: No fever, no chills Eyes: No visual changes ENT: No sore throat Respiratory: occasional cough, no shortness of breath Cardiac: No chest pain Gastrointestinal: no vomiting, no abdominal pain Genitourinary: no dysuria Musculoskeletal: No leg pain Skin: No rash Neurological: No headache Psychiatric: depression Past Medical/Surgical History: Alcoholism Bipolar disorder Smoking Status: Heavy smoker Physical Exam: General Appearance: Alert, slurred speech Eyes: Pupils equal and round, conjunctival injection ENT, Mouth: Mucous membranes moist Neck: Normal inspection Respiratory: Lungs are clear to auscultation, no wheezing Cardiovascular: Regular rate and rhythm Gastrointestinal: Abdomen is soft and nontender Neurological: A&O, nonfocal exam Skin: Warm and dry Extremities: normal inspection Psychiatric: tearful at times Constitutional: Initial Vital Signs Temperature (C) 36.8 C 09/21/16 21:25 Heart Rate 87 09/21/16 21:25 Respiratory Rate 16 09/21/16 21:25 Blood Pressure 132/83 H 09/21/16 21:25 O2 Sat (%) 95 09/21/16 21:25 O2 Delivery Mode Room Air Allergies/Adverse Reactions: No Known Allergies Allergy (Verified 09/21/16 21:34) Home Medications: Medication Instructions Recorded NK [No Known Home Meds] 09/21/16 Medical Decision Making ED Course/Re-evaluation: Able to walk with a steady gait. Departure - Departure Disposition: Home, Routine, Self-Care Clinical Impression: Alcohol intoxication Qualifiers: Complication of substance-induced condition: uncomplicated Qualified Code(s): F10.120 - Alcohol abuse with intoxication, uncomplicated Condition: Good Instructions: Alcohol Intoxication (ED) Referrals: [facility],. [Clinic] - Follow Up Only If Needed
[2016-09-21 22:10] VITALS: BP 118/83; PULSE 78; RESP 18; O2SAT 96
== END 2016-09-21 22:09 | disposition home or self-care (01) ==
LOC: EDUNIT#
DX: F10.120 Alcohol abuse with intoxication, uncomplicated (principal); F17.200 Nicotine dependence, unspecified, uncomplicated

== ENCOUNTER 2016-10-08 17:49 | Inpatient (IN) | payer MEDICAID ==
--- NOTE | 2016-10-08 17:49 | EDPHY ---
H & P Constitutional: Initial Vital Signs Temperature (C) 36.9 C 10/08/16 17:49 Heart Rate 118 H 10/08/16 17:49 Respiratory Rate 18 10/08/16 17:49 Blood Pressure 115/95 H 10/08/16 17:49 O2 Sat (%) 95 10/08/16 17:49 O2 Delivery Mode Nasal Cannula O2 (L/minute) 2 Allergies/Adverse Reactions: No Known Allergies Allergy (Verified 09/21/16 21:34) Home Medications: Medication Instructions Recorded NK [No Known Home Meds] 09/21/16 Medical Decision Making ED Course/Re-evaluation: CHIEF COMPLAINT: Shortness of breath, chills, fever. HISTORY OF PRESENT ILLNESS: The patient is a 51-year-old male who presents via EMS with a few days of shortness of breath. He admits associated fever, cough, and chills. He denies vomiting, diarrhea, or other complaints. EMS administered breathing treatment en route. REVIEW OF SYSTEMS: A 10 point review of systems was performed and is negative with the exception of the elements mentioned in the history of present illness. PHYSICAL EXAM: HR, BP, O2 Sat, RR. Temp noted General Appearance: Alert, well hydrated, appropriate, and non-toxic appearing. Head: Atraumatic without scalp tenderness or obvious injury Eyes: Pupils equal, round, reactive to light and accommodation, EOMI, no trauma , no injection. Ears: Clear bilaterally, no perforation, normal landmarks Nose: Atraumatic, no rhinorrhea, clear. Throat: There is no erythema or exudates, no lesions, normal tonsils, mucus membranes moist. Neck: Supple, 2+ carotid upstroke, nontender, no lymphadenopathy. Respiratory: No retractions and no accessory muscle use. Coarse rhonchi throughout. Expiratory wheezes. Cardiovascular: Regular rate and rhythm, no murmurs, rubs, or gallops. Bilateral carotid, radial, dorsalis pedis, and posterior tibial pulses intact. Good capillary refill all extremities. Gastrointestinal: Abdomen is soft, nontender, non-distended, no masses, no rebound, no guarding, no peritoneal signs. Musculoskeletal: Normal active ROM of all extremities, atraumatic. Neurological: Alert, appropriate, and interactive. The patient has normal DTRs and non-focal cranial nerves, motor, sensory, and cerebellar exam. Skin: No rashes, good turgor, no nodules on palpation. Past medical history: Bipolar disorder. Past surgical history: N/A. Family history:N/A. Social history:Smoker, alcohol abuse, homeless. DIAGNOSTICS/PROCEDURES/CRITICAL CARE TIME: Study: PA and Lateral Chest X-ray Indication: Shortness of breath Results: I viewed the images myself on the PACS system. My interpretation of the images is: bronchitis. The radiologist interpretation is: 1. Mild peribronchial thickening suggesting airways disease/bronchitis. 2. Subacute inferior left rib fractures. DIFFERENTIAL DIAGNOSIS: The differential diagnosis for the patient's shortness of breath and hypoxemia included but was not limited to pneumonia, myocardial infarction, acute mountain sickness, high altitude pulmonary edema, congestive heart failure, and pulmonary embolus. MEDICAL DECISION MAKIN-year-old homeless male presents with a few days of shortness of breath, fever , and chills. He has associated productive cough. On exam he has coarse rhonchi throughout, expiratory wheezes, and strong cough. EMS administered a breathing treatment en route but the patient is still hypoxic at 88% on arrival to the ED today. An IV was established and labs ordered. Chest x-ray ordered. DuoNeb breathing treatment ordered. VBG elevated at 2.4. However, the patient is afebrile. Blood pressure is normal. He is tachycardic with a normal respiratory rate. He does not meet SERS criteria. Off oxygen the patient's oxygen saturation is 85%. He has been placed back on oxygen. 750mg IV Levaquin administered. 1901: Consulted with Dr. Robertson, hospitalist. She accepts admission to med/ surg. I discussed this plan with the patient. He is in agreement. - Data Points Laboratory Results: Laboratory Results 10/08/16 18:08 10/08/16 18:08 10/08/16 10/08/16 10/08/16 18:08 18:08 18:08 WBC 6.53 10^3/uL 10^3/uL (3.80-9.50) RBC 4.34 10^6/uL L 10^6/uL (4.40-6.38) Hgb 15.0 g/dL g/dL (13.7-17.5) Hct 41.2 % % (40.0-51.0) MCV 94.9 fL fL (81.5-99.8) MCH 34.6 pg H pg (27.9-34.1) MCHC 36.4 g/dL g/dL (32.4-36.7) RDW 12.9 % % (11.5-15.2) Plt Count 166 10^3/uL 10^3/uL (150-400) MPV 8.4 fL L fL (8.7-11.7) Neut % (Auto) 20.1 % L % (39.3-74.2) Lymph % (Auto) 71.1 % H % (15.0-45.0) [place] % (Auto) 7.5 % % (4.5-13.0) Eos % (Auto) 0.8 % % (0.6-7.6) Baso % (Auto) 0.3 % % (0.3-1.7) Nucleat RBC Rel Count 0.0 % % (0.0-0.2) Absolute Neuts (auto) 1.32 10^3/uL L 10^3/uL (1.70-6.50) Absolute Lymphs (auto) 4.64 10^3/uL H 10^3/uL (1.00-3.00) Absolute Monos (auto) 0.49 10^3/uL 10^3/uL (0.30-0.80) Absolute Eos (auto) 0.05 10^3/uL 10^3/uL (0.03-0.40) Absolute Basos (auto) 0.02 10^3/uL 10^3/uL (0.02-0.10) Absolute Nucleated RBC 0.00 10^3/uL 10^3/uL (0-0.01) Immature Gran % 0.2 % % (0.0-1.1) Immature Gran # 0.01 10^3/uL 10^3/uL (0.00-0.10) PT 13.0 SEC SEC (12.0-15.0) INR 0.99 (0.83-1.16) APTT 25.5 SEC SEC (23.0-38.0) VBG Lactic Acid Sodium 143 mEq/L mEq/L (134-144) Potassium 3.5 mEq/L mEq/L (3.5-5.2) Chloride 99 mEq/L mEq/L (97-110) Carbon Dioxide 27 mEq/l mEq/l (22-31) Anion Gap 17 mEq/L H mEq/L (8-16) BUN 7 mg/dL mg/dL (7-23) Creatinine 0.9 mg/dL mg/dL (0.7-1.3) Estimated GFR > 60 Glucose 112 mg/dL H mg/dL (70-100) Calcium 8.4 mg/dL L mg/dL (8.5-10.4) Total Bilirubin 1.0 mg/dL mg/dL (0.1-1.4) 10/08/16 18:08 WBC RBC Hgb Hct MCV MCH MCHC RDW Plt Count MPV Neut % (Auto) Lymph % (Auto) [place] % (Auto) Eos % (Auto) Baso % (Auto) Nucleat RBC Rel Count Absolute Neuts (auto) Absolute Lymphs (auto) Absolute Monos (auto) Absolute Eos (auto) Absolute Basos (auto) Absolute Nucleated RBC Immature Gran % Immature Gran # PT INR APTT VBG Lactic Acid 2.4 mmol/L H mmol/L (0.7-2.1) Sodium Potassium Chloride Carbon Dioxide Anion Gap BUN Creatinine Estimated GFR Glucose Calcium Total Bilirubin Medications Given: Discontinued Medications Albuterol/Ipratropium (Duoneb) 3 ml IH EDNOW ONE Stop: 10/08/16 17:57 Last Admin: 10/08/16 18:04 Dose: 3 ml Dexamethasone (Decadron Injection) 10 mg IVP EDNOW ONE Stop: 10/08/16 19:04 Last Admin: 10/08/16 19:17 Dose: 10 mg Sodium Chloride (Ns) 1,000 mls @ 0 mls/hr IV ONCE ONE PRN Reason: Wide Open Stop: 10/08/16 18:31 Last Admin: 10/08/16 18:36 Dose: 1,000 mls Sodium Chloride (Ns) 1,000 mls @ 0 mls/hr IV ONCE ONE PRN Reason: Wide Open Stop: 10/08/16 18:36 Last Admin: 10/08/16 18:35 Dose: 1,000 mls Departure - Departure Disposition: [facility] Acute Clinical Impression: Bronchitis, Hypoxia Condition: Fair Report Scribed for: Luis Hawkins Report Scribed by: Clifford Mendez Date of Report: 10/08/16 Time of Report: 18:51
[2016-10-08] MEDS ORDERED: IPRATROPIUM/ALBUTEROL 3 ML DEYVIAL IH ONE (17:56)
[2016-10-08 18:21] LABS: % IMMATURE GRANULYOCYTES 0.2 % (0.0-1.1); ABSOLUTE IMMATURE GRANULOCYTES 0.01 10^3/uL (0.00-0.10); ADD DIFF? NO; ADD MORPH? NO; ADD SCAN? NO; ATYPICAL LYMPHOCYTE FLAG 40 (0-99); FRAGMENT RBC FLAG 0 (0-99); HEMATOCRIT 41.2 % (40.0-51.0); LEFT SHIFT FLG 0 (0-99); LIPEMIA HEMOLYSIS FLAG 90 (0-99); MEAN CELL HEMOGLOBIN 34.6 pg (27.9-34.1); MEAN CELL HEMOGLOBIN CONCENTR. 36.4 g/dL (32.4-36.7); MEAN CELL VOLUME 94.9 fL (81.5-99.8); MEAN PLATELET VOLUME 8.4 fL (8.7-11.7); PLATELET CLUMPS FLAG 10 (0-99); PLATELET COUNT 166 10^3/uL (150-400); RED BLOOD CELL COUNT 4.34 10^6/uL (4.40-6.38); RED CELL DISTRIBUTION WIDTH 12.9 % (11.5-15.2)
[2016-10-08 18:30] LABS: ANION GAP 17 mEq/L (8-16); CALCIUM 8.4 mg/dL (8.5-10.4); CARBON DIOXIDE 27 mEq/l (22-31); CHLORIDE 99 mEq/L (97-110); CREATININE 0.9 mg/dL (0.7-1.3); GLOMERULAR FILTRATION RATE > 60; GLUCOSE 112 mg/dL (70-100); INR 0.99 (0.83-1.16); POTASSIUM 3.5 mEq/L (3.5-5.2); SODIUM 143 mEq/L (134-144)
[2016-10-08] MEDS ORDERED: NS 1,000 ML IV ONE ×2 (18:30→18:35)
[2016-10-08 18:31] LABS: APTT 25.5 SEC (23.0-38.0)
[2016-10-08] MEDS ORDERED: DEXAMETHASONE 10 MG/ML VIAL IVP ONE (19:03)
[2016-10-08 19:13] LABS: LACGHOST ORDER
[2016-10-08] MEDS: LORazepam 1 MG TAB PO PRN (20:31)
[2016-10-08] MEDS ORDERED: ACETAMINOPHEN 325 MG TAB PO PRN (22:54)
[2016-10-08] MEDS ORDERED: ALBUTEROL 3 ML DEYVIAL IH PRN (22:54)
[2016-10-08] MEDS ORDERED: ONDANSETRON DISINTEGRATING 4 MG TAB PO PRN (22:54)
--- NOTE | 2016-10-08 23:28 | GHP ---
[f rep st] HISTORY AND PHYSICAL DATE OF ADMISSION: 10/08/2016 The patient is a pleasant 51-year-old gentleman with a history of alcoholism and homelessness, as we ll as remote PE, who presents to the ER today with cough that has been going on for about a week. I t is productive of clear sputum. He has not had fever or chills. He continues to drink alcohol. H is last drink was about 12 hours ago. He says he typically feels withdrawal symptoms after 5 hours. I asked him to hold up his hands to see if he had tremor, which he did, but it may have been facti tious as well. He also notes fever and chills. He said he is warm now. No vomiting, diarrhea. It sounds like he was never really treated for his pulmonary embolism. Notably, he has had a couple o f PE scans since that have been negative. REVIEW OF SYSTEMS: Complete 10-point review of systems conducted, negative except as noted in HPI. PAST MEDICAL HISTORY: 1. Alcoholism with alcohol withdrawal and seizures. 2. Homelessness. 3. Tobacco use. 4. History of PE. ALLERGIES: No known drug allergies. MEDICATIONS: None. SOCIAL HISTORY: Lives [address]. Cigarettes and alcohol. It is not clear that he uses tons of recreational drugs, although he did have an ER visit on the 4th of last month for LSD use. FAMILY HISTORY: Parents . PHYSICAL EXAM: VITAL SIGNS: Temperature 37, blood pressure 135/84, pulse 104, breathing 20 times a minute, 96% on 2 L. GENERAL: In no acute distress. HEENT: Sclerae anicteric. Oropharynx clear. Mucous membranes moist. NECK: Supple without lymphadenopathy or JVD. LUNGS: Show rhonchorous b reath sounds bilaterally without wheeze, good air movement. HEART: S1, S2 without murmurs. ABDOME N: Soft, nontender, nondistended. LOWER EXTREMITIES: Without edema. Calves are nontender. SKIN: Without rash. NEUROLOGIC: Nonfocal. LABORATORY DATA: White count 6.5, hematocrit is 141, platelets are 166,000. Coag's are normal. Th ere is no D-dimer. Venous lactate is elevated at 2.4. Sodium 142, potassium 3.5, chloride 99, bica rb 27, BUN 7, creatinine 0.9, glucose 112, calcium is 8.4. Chest x-ray interpreted by me shows bron chitis, but no infiltrate. There are some remote rib fractures essentially unchanged from prior. I discussed the case Dr. Yves Velasco. ASSESSMENT/PLAN: This is a 51-year-old gentleman here with bronchitis. 1. Marked bronchitis. The patient has bronchitis and mild hypoxia. I suspect he has some underlyi ng smoking-related lung disease. I will treat him with doxycycline, oral prednisone starting tomorr ow so he can sleep and scheduled p.r.n. nebs. 2. History of alcohol withdrawal. I will start him on scheduled Librium, and he is on the alcohol withdrawal protocol. 3. Prophylaxis. Pharmacologic prophylaxis indicated. 4. History of pulmonary embolism. Patient has mild tachycardia, but otherwise is barely hypoxic. We will follow. At this point in time, I will not further work it up. 5. Elevated venous lactate. The patient does . He may have a component of alcoholic karine er disease and is probably for this. /[id number]/MODL
[2016-10-09] MEDS: LORazepam 2 MG/ML INJ IVP PRN ×4 (00:12→21:38)
[2016-10-09 05:10] LABS: % IMMATURE GRANULYOCYTES 0.7 % (0.0-1.1); ABSOLUTE IMMATURE GRANULOCYTES 0.02 10^3/uL (0.00-0.10); ADD DIFF? NO; ADD MORPH? NO; ADD SCAN? NO; ATYPICAL LYMPHOCYTE FLAG 40 (0-99); FRAGMENT RBC FLAG 0 (0-99); HEMATOCRIT 39.1 % (40.0-51.0); HEMOGLOBIN 14.2 g/dL (13.7-17.5); LEFT SHIFT FLG 0 (0-99); LIPEMIA HEMOLYSIS FLAG 90 (0-99); MEAN CELL HEMOGLOBIN 34.3 pg (27.9-34.1); MEAN CELL HEMOGLOBIN CONCENTR. 36.3 g/dL (32.4-36.7); MEAN CELL VOLUME 94.4 fL (81.5-99.8); MEAN PLATELET VOLUME 8.7 fL (8.7-11.7); PLATELET CLUMPS FLAG 0 (0-99); PLATELET COUNT 177 10^3/uL (150-400); RED BLOOD CELL COUNT 4.14 10^6/uL (4.40-6.38); RED CELL DISTRIBUTION WIDTH 12.4 % (11.5-15.2)
[2016-10-09 05:23] LABS: POTASSIUM 3.7 mEq/L (3.5-5.2)
[2016-10-09 05:24] LABS: ANION GAP 13 mEq/L (8-16); CARBON DIOXIDE 23 mEq/l (22-31); CHLORIDE 99 mEq/L (97-110); CREATININE 0.8 mg/dL (0.7-1.3); GLOMERULAR FILTRATION RATE > 60; GLUCOSE 212 mg/dL (70-100); SODIUM 135 mEq/L (134-144)
[2016-10-09 05:26] LABS: MAGNESIUM 0.9 mg/dL (1.6-2.3)
[2016-10-09] MEDS: IPRATROPIUM/ALBUTEROL 3 ML DEYVIAL IH SCH ×3 (05:37→16:38)
[2016-10-09] MEDS ORDERED: MAGNESIUM SULF 2 GM/WATER 50 ML IV ONE (08:47)
[2016-10-09] MEDS: ONDANSETRON 4 MG/2 ML VIAL IVP PRN ×3 (09:15→21:34)
[2016-10-09] MEDS: ENOXAPARIN 40 MG/0.4 ML SYR SC SCH (09:27)
[2016-10-09] MEDS: predniSONE 20 MG TAB PO SCH (10:42)
[2016-10-09] MEDS: AZITHROMYCIN 250 MG TAB PO SCH (10:42)
[2016-10-09] MEDS: THIAMINE HCL 100 MG TAB PO SCH (10:43)
[2016-10-09] MEDS: LORazepam 1 MG TAB PO PRN (12:50)
[2016-10-09] MEDS ORDERED: IPRATROPIUM/ALBUTEROL 3 ML DEYVIAL IH PRN (16:44)
[2016-10-09] MEDS ORDERED: LORazepam 1 MG TAB PO PRN (16:44)
[2016-10-09] MEDS ORDERED: IOPAMIDOL (ISOVUE 370) 100 ML BTL IV ONE (17:05)
--- NOTE | 2016-10-09 17:25 | HOSPPROG ---
Hospitalist Progress Note Assessment/Plan: Assessment: 51-year-old male presents with acute reactive airway exacerbation complicated by acute alcohol withdrawal Plan: 1. Acute reactive airway exacerbation. New problem this provider, further workup indicated. Evidenced by diffuse expiratory wheezes (per outside record review of history and physical by Dr. Bob Morgan from 10/08/2016), cough, hypoxia, most likely precipitated by viral URI. -D-dimer positive, get CT angiogram to rule out pulmonary embolism -continue on scheduled prednisone azithromycin, adjust nebulizers to p.r.n. given improvement in air movement -chest x-ray demonstrates peribronchial thickening and subacute inferior left rib fracture (personally interpreted) 2. Acute alcohol withdrawal. Evidence by visible tremulousness, tachycardia heavy history of alcohol use -CIWA score currently 15 -discussed with RN, will adjust his Ativan dosage to range of 0.5-2 mg q.4 hours as needed, can be placed on scheduled Ativan or Librium if needed overnight for escalation -currently does not require Precedex or transfer to ICU, continue to monitor -patient reports that he would like to formally discontinue alcohol so it is appropriate to treat him for alcohol withdrawal at this time 3. Leukopenia. Acute, most likely secondary to alcohol use, liver panel Diet. Regular as tolerated Prophylaxis. High risk patient Lovenox 40 Code. Full Disposition. Anticipated discharge uncertain this time, anticipated length stay is greater than 48 hours warranting upgraded to inpatient admission status for reasonable medical necessity including acute worsening of acute alcohol withdrawal, CIWA score 15, requiring frequent doses of Ativan, monitoring, high risk patient for withdrawal seizures. Subjective: Patient reports that he still does not feel well, remains tremulous Objective: Vital Signs Temp Pulse Resp BP Pulse Ox 36.9 C 86 18 150/93 H 96 10/09/16 16:00 10/09/16 16:30 10/09/16 16:30 10/09/16 16:00 10/09/16 16:30 Laboratory Results 10/09/16 04:43 10/09/16 04:43 10/08/16 10/09/16 10/10/16 05:59 05:59 05:59 Intake Total 3000 Output Total 2225 1380 Balance 775 -1380 PT 13.0 SEC (12.0-15.0) 10/08/16 18:08 INR 0.99 (0.83-1.16) 10/08/16 18:08 - Physical Exam Constitutional: chronically ill appearing, uncomfortable, unkempt (odiferous), No not in pain Cardiovascular: tachycardia, No systolic murmur, No irregularly irregular, No edema Respiratory: no respiratory distress, no rales or rhonchi, clear to auscultation , No expiratory wheeze, No inspiratory crackles, No bronchial breath sounds Gastrointestinal: normoactive bowel sounds, soft, non-tender abdomen, no palpable masses Neurologic: AAOx3, asterixes (Mild with visible tremulousness), No facial droop Psychiatric: interacting appropriately, not encephalopathic, thought process linear, anxious, No agitated ICD10 Worksheet Patient Problems: Problems Problem Status Onset Excoriated rash Acute Chest pain Acute Acute alcohol intoxication Acute MRSA (methicillin resistant Staphylococcus aureus) Acute 06/03/15 Alcohol intoxication Acute Anxiety attack Acute Warfarin-induced coagulopathy Acute Acute bronchitis Acute Bronchitis Acute Hypoxia Acute
[2016-10-09] MEDS ORDERED: PNEUMOCOCCAL 0.5ML VACCINE VIAL IM ONE (20:53)
[2016-10-10] MEDS ORDERED: LORazepam 1 MG TAB PO PRN (00:10)
[2016-10-10] MEDS: LORazepam 2 MG/ML INJ IVP PRN ×3 (00:29→04:26)
[2016-10-10] MEDS ORDERED: IBUPROFEN 600 MG TAB PO ONE (05:19)
[2016-10-10] MEDS ORDERED: PROMETHAZINE HCL 25 MG TAB PO ONE (05:20)
[2016-10-10 05:58] LABS: % IMMATURE GRANULYOCYTES 0.3 % (0.0-1.1); ABSOLUTE IMMATURE GRANULOCYTES 0.03 10^3/uL (0.00-0.10); ABSOLUTE NRBC COUNT 0.02 10^3/uL (0-0.01); ADD DIFF? NO; ADD MORPH? NO; ADD SCAN? NO; ATYPICAL LYMPHOCYTE FLAG 0 (0-99); FRAGMENT RBC FLAG 0 (0-99); HEMATOCRIT 39.4 % (40.0-51.0); HEMOGLOBIN 14.4 g/dL (13.7-17.5); LEFT SHIFT FLG 0 (0-99); LIPEMIA HEMOLYSIS FLAG 90 (0-99); MEAN CELL HEMOGLOBIN 35.2 pg (27.9-34.1); MEAN CELL HEMOGLOBIN CONCENTR. 36.5 g/dL (32.4-36.7); MEAN CELL VOLUME 96.3 fL (81.5-99.8); NRBC-AUTO% 0.2 % (0.0-0.2); PLATELET CLUMPS FLAG 0 (0-99); PLATELET COUNT 207 10^3/uL (150-400); RED BLOOD CELL COUNT 4.09 10^6/uL (4.40-6.38); RED CELL DISTRIBUTION WIDTH 12.4 % (11.5-15.2)
[2016-10-10 06:13] LABS: ALANINE AMINOTRANSFERASE 53 IU/L (21-72); ALBUMIN 3.4 g/dL (3.5-5.0); ALKALINE PHOSPHATASE 72 IU/L (38-126); ANION GAP 10 mEq/L (8-16); ASPARTATE AMINOTRANSFERASE 43 IU/L (17-59); BILIRUBIN,TOTAL 1.5 mg/dL (0.1-1.4); CALCIUM 8.7 mg/dL (8.5-10.4); CARBON DIOXIDE 25 mEq/l (22-31); CHLORIDE 99 mEq/L (97-110); CREATININE 0.8 mg/dL (0.7-1.3); GLOMERULAR FILTRATION RATE > 60; GLUCOSE 134 mg/dL (70-100); MAGNESIUM 1.6 mg/dL (1.6-2.3); POTASSIUM 3.6 mEq/L (3.5-5.2); SODIUM 134 mEq/L (134-144); TOTAL PROTEIN 6.6 g/dL (6.3-8.2)
[2016-10-10] MEDS ORDERED: HALOPERIDOL LACT 5 MG/ML INJ IM PRN (07:26)
--- NOTE | 2016-10-10 07:37 | HOSPPROG ---
Hospitalist Progress Note Assessment/Plan: XC note: Called by RN during the night that his CIWA scores were on the rise, up to 17. He required increased frequency of IV Ativan. Early this morning, the patient stated he planned to leave AMA. He is actively withdrawing, stated the year was 2076. He is stumbling around the room, slurring his words. He is not making appropriate decisions for himself. Placed on a detainer, security here. Discussing with ARN and RN regarding whether he'll stay on the floor or transfer to ICU. Objective: Vital Signs Temp Pulse Resp BP Pulse Ox 36.9 C 83 18 146/102 H 95 10/10/16 05:10 10/10/16 05:10 10/10/16 05:10 10/10/16 05:10 10/10/16 05:10 Laboratory Results 10/10/16 05:36 10/10/16 05:36 10/09/16 10/10/16 10/11/16 05:59 05:59 05:59 Intake Total 3000 3300 Output Total 2225 3005 Balance 775 295 PT 13.0 SEC (12.0-15.0) 10/08/16 18:08 INR 0.99 (0.83-1.16) 10/08/16 18:08 ICD10 Worksheet Patient Problems: Problems Problem Status Onset Bronchitis Acute Hypoxia Acute Acute alcohol intoxication Acute Acute bronchitis Acute Alcohol intoxication Acute Anxiety attack Acute Chest pain Acute Excoriated rash Acute MRSA (methicillin resistant Staphylococcus aureus) Acute 06/03/15 Warfarin-induced coagulopathy Acute
[2016-10-10] MEDS ORDERED: NICOTINE 21 MG/24 HR PATCH TD SCH (09:00)
[2016-10-10] MEDS: predniSONE 20 MG TAB PO SCH (09:38)
[2016-10-10] MEDS: ENOXAPARIN 40 MG/0.4 ML SYR SC SCH (09:38)
[2016-10-10] MEDS: THIAMINE HCL 100 MG TAB PO SCH (09:38)
[2016-10-10] MEDS: AZITHROMYCIN 250 MG TAB PO SCH (09:38)
[2016-10-10] MEDS: LORazepam 2 MG/ML INJ IVP/IM PRN ×2 (09:38→14:58)
[2016-10-10] MEDS: chlordiazePOXIDE 25 MG CAP PO SCH ×2 (11:18→16:55)
[2016-10-10 11:56] VITALS: RESP 16
[2016-10-10 16:10] VITALS: BP 120/79; PULSE 105; TEMP 97.9; O2SAT 95
--- NOTE | 2016-10-10 16:26 | HOSPPROG ---
Hospitalist Progress Note Assessment/Plan: Assessment: 51-year-old male presents with acute reactive airway exacerbation complicated by acute alcohol withdrawal Plan: 1. Acute reactive airway exacerbation. Evidenced by diffuse expiratory wheezes (per outside record review of history and physical by Dr. Bob Morgan from 10/08/2016), cough, hypoxia, most likely precipitated by viral URI. -D-dimer positive, CTA w/o PE -continue on scheduled prednisone, azithromycin, PRN nebs 2. Acute alcohol withdrawal. Acute worsening this AM w/ hallucinations, non- directible behavior, ongoing tremulousness -CIWA, added scheduled librium and high dose PRN ativan -required detainer this AM given incapacity to make rational decisions, placed on nursing 1:1 -calming since placing on scheduled librium, will reassess and lift detainer/1: 1 if possible 3. Leukopenia. Acute, most likely secondary to alcohol use, liver panel Diet. Regular as tolerated Prophylaxis. High risk patient Lovenox 40 Code. Full Disposition. Anticipated discharge uncertain this time, clinically worsening this AM. Subjective: Patient escalating this morning see Dr. Robertson's note, patient has calmed since receiving Librium and high-dose Ativan Objective: Vital Signs Temp Pulse Resp BP Pulse Ox 36.6 C 105 H 16 120/79 95 10/10/16 16:01 10/10/16 16:01 10/10/16 16:01 10/10/16 16:01 10/10/16 16:01 Laboratory Results 10/10/16 05:36 10/10/16 05:36 10/09/16 10/10/16 10/11/16 05:59 05:59 05:59 Intake Total 3300 600 Output Total 1625 575 Balance 1675 25 PT 13.0 SEC (12.0-15.0) 10/08/16 18:08 INR 0.99 (0.83-1.16) 10/08/16 18:08 - Physical Exam Constitutional: no apparent distress, not in pain, chronically ill appearing, No uncomfortable Cardiovascular: regular rate and rhythym, no murmur, rub, or gallop Respiratory: no respiratory distress, no rales or rhonchi, clear to auscultation Gastrointestinal: normoactive bowel sounds, soft, non-tender abdomen, no palpable masses Neurologic: No asterixes (Ongoing tremulousness), No facial droop Psychiatric: not anxious, flat affect, poor insight, poor judgement, No agitated ICD10 Worksheet Patient Problems: Problems Problem Status Onset Excoriated rash Acute Chest pain Acute Acute alcohol intoxication Acute MRSA (methicillin resistant Staphylococcus aureus) Acute 06/03/15 Alcohol intoxication Acute Anxiety attack Acute Warfarin-induced coagulopathy Acute Acute bronchitis Acute Bronchitis Acute Hypoxia Acute
[2016-10-10] MEDS ORDERED: ALBUTEROL 60 PUFFS/8 GM MDI IH PRN (16:36)
--- NOTE | 2016-10-10 16:44 | PDDCSUM ---
Discharge Summary Discharge Summary: DISCHARGE SUMMARY FOLLOW-UP ITEMS: None DATE OF ADMISSION: 10/08/2016 DATE OF DISCHARGE: 10/10/2016 DISCHARGE DIAGNOSES: 1. Acute reactive airway exacerbation 2. Acute alcohol withdrawal CONSULTATIONS: None PROCEDURES / IMAGING: CT angiograms demonstrating no evidence of pulmonary embolism, no evidence of focal pneumonia CHIEF COMPLAINT: Acute chest pain SUBJECTIVE: Patient is feeling well at time of discharge, his tremulousness has subsided, he would like to be discharged at this time PHYSICAL EXAM ON DISCHARGE: Systolic blood pressure is 140, heart rate 80, afebrile overnight, satting well on room air, tremulousness absent, no asterixis, alert awake oriented times 3, patient is coherent and has capacity to make decisions, no expiratory wheezes or bronchial breath sounds LABS ON DISCHARGE: Creatinine 0.8, liver panel unremarkable, potassium 3.6, white blood cell count 9400, hemoglobin 14.4 HOSPITAL COURSE BY PROBLEM: 1. Acute reactive airway exacerbation. Evidenced by diffuse expiratory wheezes with cough, hypoxia, most likely precipitated by a viral URI. Patient responded well to prednisone, azithromycin, scheduled DuoNeb treatments. At the time of discharge, his reactive airway component has subsided. Will receive the medications for total 5 days, prescribed discharge, albuterol inhaler inhaled at time of discharge. 2. Acute alcohol withdrawal. Patient began experiencing acute escalation on 04/ 05 a.m. with hallucinations, non directable behavior, tremulousness. He required Claude at that time as well as one-to-one nursing care. He was placed on scheduled Librium and his symptoms significantly de escalated. The patient would like help withdrawing from alcohol and he is amenable to a scheduled Librium taper. He has received 2 doses of Librium today, would advise 1 more this evening, twice daily tomorrow, then daily for 2 days thereafter. I have warned the patient of the risks of over-sedation if he combines with alcohol and I have encouraged him not to should this medication with other people. Given the patient's acute escalation this morning, this seems like the safest option, given that the patient is requesting discharge at this time and he has the cognitive capacity to do so. DISCHARGE MEDICATIONS: Please see official discharge medication reconciliation sheet in chart , Librium 25 mg twice daily, then once daily thereafter. Prednisone for 3 subsequent days, azithromycin 3 subsequent days, as needed albuterol inhaler. DISCHARGE INSTRUCTIONS: [facility]. TIME SPENT: Greater than 30 minutes were spent on direct patient care, as well as discharge planning and preparation.
== END 2016-10-10 17:58 | disposition home or self-care (01) | DRG 202 ==
LOC: EDUNIT# → F1N 20:03 → OBSVTOIN 10-09 17:21
PROVIDERS: ADMIT Hospitalist; ATTEND Internal Medicine
DX: J45.901 Unspecified asthma with (acute) exacerbation (principal); F10.232 Alcohol dependence with withdrawal with perceptual disturbance; Z59.0 Homelessness; F17.210 Nicotine dependence, cigarettes, uncomplicated
CPT/HCPCS: 96365; G0009; G0378; J1650; J1956; J2060; J2405; Q9967

== ENCOUNTER 2016-10-19 17:33 | Emergency (ER) | payer MEDICAID ==
[2016-10-19] MEDS ORDERED: IPRATROPIUM/ALBUTEROL 3 ML DEYVIAL IH ONE (17:38)
[2016-10-19 17:42] VITALS: BP 109/74; PULSE 103; RESP 18; TEMP 98.8; O2SAT 89
--- NOTE | 2016-10-19 17:56 | EDPHY ---
H & P Stated Complaint: etoh, sob,cough HPI/ROS: Chief complaint: Cold symptoms History of present illness: This is a 51-year-old male brought to the emergency department by EMS for cold symptoms. Patient reports he has had symptoms for the last day. He reports feeling sweaty, has a persistent cough and occasionally feels short of breath. Denies other associated signs or symptoms. Patient was recently hospitalized for similar symptoms. Review of systems: A 10 point review of systems was obtained and other than described above was negative - Personal History Current Tetanus Diphtheria and Acellular Pertussis (TDAP): Yes Tetanus Vaccine Date: 2014 - Medical/Surgical History Hx Asthma: No Hx Chronic Respiratory Disease: No Hx Diabetes: No Hx Cardiac Disease: No Hx Renal Disease: No Hx Cirrhosis: No Hx Alcoholism: Yes Hx HIV/AIDS: No Hx Splenectomy or Spleen Trauma: No Other PMH: Bipolar, ETOH, HTN, PE, reflux, ETOH induced seizure - Social History Smoking Status: Heavy smoker - Physical Exam Exam: General Appearance: Alert, nontoxic. Eyes: Pupils equal and round no pallor or injection. ENT, Mouth: Mucous membranes moist. Respiratory: Lung sounds are globally diminished. Cardiovascular: Regular rate and rhythm. Gastrointestinal: Abdomen is soft and nontender, no masses, bowel sounds normal. Neurological: Alert and oriented x4. Strength and sensation intact and symmetrical. Skin: Warm and dry, no rashes. Musculoskeletal: Neck is supple nontender. Extremities are symmetrical, full range of motion. Psychiatric: Patient is very agitated. Constitutional: Initial Vital Signs Temperature (C) 37.1 C 10/19/16 17:33 Heart Rate 103 H 10/19/16 17:33 Respiratory Rate 18 10/19/16 17:33 Blood Pressure 109/74 10/19/16 17:33 O2 Sat (%) 89 L 10/19/16 17:33 O2 Delivery Mode Room Air Allergies/Adverse Reactions: No Known Allergies Allergy (Verified 09/21/16 21:34) Home Medications: Medication Instructions Recorded Albuterol [Proventil Inhaler HFA 2 puffs IH Q4HRS PRN #0 mdi 10/10/16 (*)] Azithromycin [Zithromax] 500 mg PO DAILY #6 tab 10/10/16 chlordiazePOXIDE [Librium 25 mg 25 mg PO BID #5 cap 10/10/16 (*)] predniSONE 40 mg PO DAILY #6 tablet 10/10/16 Medical Decision Making ED Course/Re-evaluation: Patient seen under the supervision of my secondary supervising physician Dr. Daljit Pringle. Patient presents to the emergency department with EMS reporting cold symptoms. Patient has been extremely belligerent his entire course in the emergency room. According to EMS he would not let EMS evaluate him. On arrival to the emergency room patient was cursing out staff. He was being very uncooperative and aggressive. Police were called for staff safety. I was able to calm him down verbally and agreed to evaluate him with a chest xray and treat him with a DuoNeb. Patient was given a DuoNeb. However when radiology came to get him for a chest x-ray he refused it. I went back to talk to him and he told me that I look like "a fucking retard". Patient ultimately gathered his personal affects and left the hospital AMA. Differential Diagnosis: Included but not limited to asthma exacerbation, bronchitis, pneumonia, PE - Data Points Medications Given: Discontinued Medications Albuterol/Ipratropium (Duoneb) 3 ml EDNOW ONE Stop: 10/19/16 17:39 Last Admin: 10/19/16 17:46 Dose: 3 ml Departure - Departure Disposition: Against Medical Advice Clinical Impression: Bronchitis Condition: Fair Instructions: Acute Bronchitis (ED) Additional Instructions: We have offered you evaluation and treatment today, you have refused If at any time you feel and want treatment return to the emergency room Referrals: Patient,NotPresent [Unknown] - As per Instructions
== END 2016-10-19 18:20 | disposition left against medical advice (07) ==
LOC: EDUNIT#
DX: J40 Bronchitis, not specified as acute or chronic (principal); I10 Essential (primary) hypertension; F17.200 Nicotine dependence, unspecified, uncomplicated

== ENCOUNTER 2017-01-28 22:56 | Inpatient (IN) | payer MEDICAID ==
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
[2017-01-28] MEDS ORDERED: OXYMETAZOLINE 30 ML NASAL SPRAY EACHNARE ONE (23:41)
[2017-01-29 00:50] LABS: % IMMATURE GRANULYOCYTES 0.5 % (0.0-1.1); ABSOLUTE IMMATURE GRANULOCYTES 0.04 10^3/uL (0.00-0.10); ADD DIFF? NO; ADD MORPH? NO; ADD SCAN? NO; ATYPICAL LYMPHOCYTE FLAG 0 (0-99); FRAGMENT RBC FLAG 0 (0-99); HEMATOCRIT 45.4 % (40.0-51.0); HEMOGLOBIN 16.1 g/dL (13.7-17.5); LEFT SHIFT FLG 0 (0-99); LIPEMIA HEMOLYSIS FLAG 90 (0-99); MEAN CELL HEMOGLOBIN 34.7 pg (27.9-34.1); MEAN CELL HEMOGLOBIN CONCENTR. 35.5 g/dL (32.4-36.7); MEAN CELL VOLUME 97.8 fL (81.5-99.8); MEAN PLATELET VOLUME 9.2 fL (8.7-11.7); PLATELET CLUMPS FLAG 10 (0-99); PLATELET COUNT 101 10^3/uL (150-400); RED BLOOD CELL COUNT 4.64 10^6/uL (4.40-6.38); RED CELL DISTRIBUTION WIDTH 15.3 % (11.5-15.2)
[2017-01-29 00:58] LABS: ALANINE AMINOTRANSFERASE 92 IU/L (21-72); ALBUMIN 4.3 g/dL (3.5-5.0); ALKALINE PHOSPHATASE 76 IU/L (38-126); ANION GAP 24 mEq/L (8-16); ASPARTATE AMINOTRANSFERASE 218 IU/L (17-59); BILIRUBIN,TOTAL 1.1 mg/dL (0.1-1.4); CALCIUM 8.8 mg/dL (8.5-10.4); CARBON DIOXIDE 17 mEq/l (22-31); CHLORIDE 109 mEq/L (97-110); CREATININE 1.1 mg/dL (0.7-1.3); GLOMERULAR FILTRATION RATE > 60; GLUCOSE 175 mg/dL (70-100); POTASSIUM 3.5 mEq/L (3.5-5.2); SODIUM 150 mEq/L (134-144); TOTAL PROTEIN 7.4 g/dL (6.3-8.2)
[2017-01-29 01:10] LABS: ETHANOL SERUM 506 mg/dL (0-10); INR 0.98 (0.83-1.16); PROTIME(PATIENT) 12.9 SEC (12.0-15.0)
[2017-01-29] MEDS ORDERED: NS 500 ML IV ONE (01:10)
[2017-01-29] MEDS ORDERED: LORazepam 2 MG/ML INJ IVP PRN (02:11)
[2017-01-29] MEDS ORDERED: HALOPERIDOL LACT 5 MG/ML INJ IVP PRN (02:11)
[2017-01-29] MEDS ORDERED: D5W 1/2 NS W/ 20 KCl/L 1,000 ML IV SCH (02:15)
[2017-01-29] MEDS ORDERED: DEXMEDETOMIDINE HCL 400 MCG in NS 100 ML IV SCH (02:30)
[2017-01-29] MEDS ORDERED: PROTOCOL MAGNESIUM 1 DOSE IV PRN (03:56)
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
[2017-01-29 06:45] LABS: % IMMATURE GRANULYOCYTES 0.2 % (0.0-1.1); ABSOLUTE IMMATURE GRANULOCYTES 0.01 10^3/uL (0.00-0.10); ADD DIFF? NO; ADD MORPH? NO; ADD SCAN? NO; ATYPICAL LYMPHOCYTE FLAG 0 (0-99); FRAGMENT RBC FLAG 0 (0-99); HEMATOCRIT 36.5 % (40.0-51.0); HEMOGLOBIN 12.9 g/dL (13.7-17.5); LEFT SHIFT FLG 0 (0-99); LIPEMIA HEMOLYSIS FLAG 90 (0-99); MEAN CELL HEMOGLOBIN 34.5 pg (27.9-34.1); MEAN CELL HEMOGLOBIN CONCENTR. 35.3 g/dL (32.4-36.7); MEAN CELL VOLUME 97.6 fL (81.5-99.8); MEAN PLATELET VOLUME 9.9 fL (8.7-11.7); PLATELET CLUMPS FLAG 0 (0-99); PLATELET COUNT 89 10^3/uL (150-400); RED BLOOD CELL COUNT 3.74 10^6/uL (4.40-6.38); RED CELL DISTRIBUTION WIDTH 14.7 % (11.5-15.2)
[2017-01-29 07:07] LABS: ANION GAP 11 mEq/L (8-16); CALCIUM 8.1 mg/dL (8.5-10.4); CARBON DIOXIDE 20 mEq/l (22-31); CHLORIDE 108 mEq/L (97-110); CREATININE 0.9 mg/dL (0.7-1.3); GLOMERULAR FILTRATION RATE > 60; GLUCOSE 365 mg/dL (70-100); MAGNESIUM 1.2 mg/dL (1.6-2.3); POTASSIUM 4.6 mEq/L (3.5-5.2); SODIUM 139 mEq/L (134-144)
[2017-01-29] MEDS ORDERED: MAGNESIUM SULF 2 GM/WATER 50 ML IV ONE (08:08)
[2017-01-29] MEDS: FAMOTIDINE 20 MG/NACL 50 ML IV SCH ×2 (08:15→21:14)
[2017-01-29] MEDS: VODKA 50 ML BOTTLE PO PRN ×4 (09:44→21:14)
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
[2017-01-29] MEDS: chlordiazePOXIDE 25 MG CAP PO PRN (21:44)
--- NOTE | 2017-01-29 23:43 | TRAUMAPN ---
Assessment/Plan: s/p fall with small cortical hematoma Alcohol abuse No other injuries noted on tertiary survey Likely home in am S: Cooperative Objective: Vital Signs Temp Pulse Resp BP Pulse Ox 36.8 C 103 H 19 148/92 H 94 01/29/17 15:44 01/29/17 15:44 01/29/17 12:00 01/29/17 15:44 01/29/17 15:44 Laboratory Results 01/29/17 06:15 01/29/17 06:15 01/28/17 01/29/17 01/30/17 05:59 05:59 05:59 Intake Total 2133 1380 Output Total 775 Balance 2133 605 PT 12.9 SEC (12.0-15.0) 01/29/17 00:30 INR 0.98 (0.83-1.16) 01/29/17 00:30 Physical Exam - Physical Exam General Appearance: WD/WN, no apparent distress EENT: normal ENT inspection, pharynx normal, No scleral icterus (R), No scleral icterus (L) Neck: non-tender Respiratory: lungs clear, normal breath sounds Cardiac/Chest: regular rate, rhythm Abdomen: normal bowel sounds, non-tender, soft Skin: warm/dry Extremities: normal range of motion
[2017-01-30] MEDS: VODKA 50 ML BOTTLE PO PRN ×2 (06:10→12:48)
[2017-01-30 06:35] LABS: % IMMATURE GRANULYOCYTES 0.2 % (0.0-1.1); ABSOLUTE IMMATURE GRANULOCYTES 0.01 10^3/uL (0.00-0.10); ADD DIFF? NO; ADD MORPH? NO; ADD SCAN? NO; ATYPICAL LYMPHOCYTE FLAG 0 (0-99); FRAGMENT RBC FLAG 0 (0-99); HEMATOCRIT 41.3 % (40.0-51.0); HEMOGLOBIN 14.7 g/dL (13.7-17.5); LEFT SHIFT FLG 0 (0-99); LIPEMIA HEMOLYSIS FLAG 90 (0-99); MEAN CELL HEMOGLOBIN 34.1 pg (27.9-34.1); MEAN CELL HEMOGLOBIN CONCENTR. 35.6 g/dL (32.4-36.7); MEAN CELL VOLUME 95.8 fL (81.5-99.8); MEAN PLATELET VOLUME 9.3 fL (8.7-11.7); PLATELET CLUMPS FLAG 10 (0-99); PLATELET COUNT 105 10^3/uL (150-400); RED BLOOD CELL COUNT 4.31 10^6/uL (4.40-6.38); RED CELL DISTRIBUTION WIDTH 14.6 % (11.5-15.2)
[2017-01-30 07:01] LABS: ANION GAP 12 mEq/L (8-16); CALCIUM 8.5 mg/dL (8.5-10.4); CARBON DIOXIDE 26 mEq/l (22-31); CHLORIDE 102 mEq/L (97-110); CREATININE 0.7 mg/dL (0.7-1.3); GLOMERULAR FILTRATION RATE > 60; GLUCOSE 112 mg/dL (70-100); MAGNESIUM 1.4 mg/dL (1.6-2.3); POTASSIUM 3.6 mEq/L (3.5-5.2); SODIUM 140 mEq/L (134-144)
[2017-01-30] MEDS ORDERED: MAGNESIUM SULF 2 GM/WATER 50 ML IV ONE (08:33)
[2017-01-30] MEDS: FAMOTIDINE 20 MG/NACL 50 ML IV SCH ×2 (08:49→20:01)
[2017-01-30] MEDS: chlordiazePOXIDE 25 MG CAP PO PRN ×2 (08:49→12:48)
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
[2017-01-30] MEDS ORDERED: D50W 25 GM/50 ML SYR IVP PRN (13:03)
[2017-01-30] MEDS: HYDROmorphONE/DILAUDID 1 MG/ML SYR IVP PRN (13:45)
--- NOTE | 2017-01-30 16:47 | SOAPPROG ---
Downtime Inpatient MD Late Entry SOAP Note: Tertiary survey completed Repeat head CT shows near full resolution of the 5mm ICH/CT cervical spine without fractures. Lipase is elevated c/w pancreatitis Will discuss with medical team S MD Yfn, FACS
[2017-01-30 16:50] LABS: HEMOGLOBIN A1C 4.9 % (4.0-6.0)
[2017-01-30] MEDS: LORazepam 1 MG TAB PO SCH ×2 (17:53→21:58)
[2017-01-30] MEDS: INSULIN LISPRO 100 UNIT/ML SC SCH (18:16)
--- NOTE | 2017-01-30 18:24 | PDGENHP ---
History and Physical History and Physical: CONSULT HISTORY AND PHYSICAL CC:Was asked by Dr. Daljit Coulter to evaluate and assist in the care of this patient with acute pancreatitis from alcohol in the setting of recent trauma. HISTORY: This patient was admitted to the trauma service yesterday after he presented following a fall, intoxicated and agitated and not interacting appropriately. He had an alcohol level of 500. There was a diagnosis of an intracranial hemorrhage which was small and did not require surgical intervention. Overnight the patient has recovered nicely with return to normal mentation is now interacting appropriately with staff and is not confused. He does not apparently have neurologic consequences. There were no signs of other significant injuries. The patient however has had some nausea vomiting and dry heaving today. This is felt to be due to alcohol related issues any does have an elevated lipase. The patient chose to try and avoid alcohol withdrawal which has been through before, and keep drinking at this time. Therefore he was getting vodka 3 times daily. ROS: A comprehensive 10 system review revealed no other significant findings PAST MEDICAL HISTORY: Alcoholism FAMILY MEDICAL HISTORY: no history of pancreatitis SOCIAL HISTORY: Homeless heavy ongoing outpatient alcohol abuse, patient not willing to elaborate on volume MEDICATIONS: have reviewed the patient's inpatient medication list. 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, no focal weakness IV site: looks normal LABORATORY DATA: mild elevations in hepatic transaminases with higher AST indicating likely due to alcohol ; bilirubin not significant elevated Lipase mildly elevated at 500 ASSESSMENT: -mild alcoholic pancreatitis and mild alcoholic hepatitis -Suspect he may also have some alcoholic gastritis -No sign of complications of these issues yet but he is symptomatic with vomiting -Alcoholism, currently no signs of alcohol withdrawal but still early for that - traumatic intracranial hemorrhage, small and without neurologic consequences PLANS: -I discussed the case in detail with Dr. Daljit Coulter -Agree with recommendation to stop alcohol at this time -I will begin some scheduled as well as additional p.r.n. Ativan -Will need to determine over time how much withdrawal he is going to have, he may end up quite ill with this. -Would continue thiamin -Alcohol counseling I have reviewed the patient's case in detail with Dr. Daljit Coulter
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
[2017-01-30] MEDS: LORazepam 2 MG/ML INJ IVP PRN (20:01)
[2017-01-31] MEDS: LORazepam 2 MG/ML INJ IVP PRN ×2 (00:13→03:47)
[2017-01-31] MEDS: HYDROmorphONE/DILAUDID 1 MG/ML SYR IVP PRN (00:13)
[2017-01-31] MEDS: LORazepam 1 MG TAB PO SCH ×3 (02:13→10:25)
[2017-01-31 05:12] LABS: % IMMATURE GRANULYOCYTES 0.2 % (0.0-1.1); ABSOLUTE IMMATURE GRANULOCYTES 0.01 10^3/uL (0.00-0.10); ADD DIFF? NO; ADD MORPH? NO; ADD SCAN? NO; ATYPICAL LYMPHOCYTE FLAG 0 (0-99); FRAGMENT RBC FLAG 0 (0-99); HEMATOCRIT 40.4 % (40.0-51.0); HEMOGLOBIN 14.6 g/dL (13.7-17.5); LEFT SHIFT FLG 0 (0-99); LIPEMIA HEMOLYSIS FLAG 90 (0-99); MEAN CELL HEMOGLOBIN 34.5 pg (27.9-34.1); MEAN CELL HEMOGLOBIN CONCENTR. 36.1 g/dL (32.4-36.7); MEAN CELL VOLUME 95.5 fL (81.5-99.8); MEAN PLATELET VOLUME 9.5 fL (8.7-11.7); PLATELET CLUMPS FLAG 10 (0-99); PLATELET COUNT 127 10^3/uL (150-400); RED BLOOD CELL COUNT 4.23 10^6/uL (4.40-6.38); RED CELL DISTRIBUTION WIDTH 14.4 % (11.5-15.2)
[2017-01-31 05:29] LABS: ANION GAP 12 mEq/L (8-16); CALCIUM 8.9 mg/dL (8.5-10.4); CARBON DIOXIDE 24 mEq/l (22-31); CHLORIDE 101 mEq/L (97-110); CREATININE 0.8 mg/dL (0.7-1.3); GLOMERULAR FILTRATION RATE > 60; GLUCOSE 105 mg/dL (70-100); MAGNESIUM 1.5 mg/dL (1.6-2.3); POTASSIUM 3.7 mEq/L (3.5-5.2); SODIUM 137 mEq/L (134-144)
[2017-01-31] MEDS ORDERED: MAGNESIUM SULF 1 GM/DEXTROSE 100 ML IV ONE (07:21)
[2017-01-31] MEDS: FAMOTIDINE 20 MG/NACL 50 ML IV SCH (08:49)
[2017-01-31] MEDS: INSULIN LISPRO 100 UNIT/ML SC SCH ×3 (09:03→17:50)
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
[2017-01-31] MEDS ORDERED: LORazepam 2 MG/ML INJ IVP PRN (10:08)
[2017-01-31] MEDS: NICOTINE 21 MG/24 HR PATCH TD SCH (10:10)
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
[2017-01-31] MEDS: VODKA 50 ML BOTTLE PO SCH ×3 (10:41→20:43)
[2017-01-31] MEDS: FAMOTIDINE 20 MG TAB PO SCH (20:45)
[2017-02-01 05:11] LABS: ANION GAP 11 mEq/L (8-16); CALCIUM 8.9 mg/dL (8.5-10.4); CARBON DIOXIDE 21 mEq/l (22-31); CHLORIDE 107 mEq/L (97-110); CREATININE 0.8 mg/dL (0.7-1.3); GLOMERULAR FILTRATION RATE > 60; GLUCOSE 110 mg/dL (70-100); MAGNESIUM 1.6 mg/dL (1.6-2.3); SODIUM 139 mEq/L (134-144)
[2017-02-01] MEDS: VODKA 50 ML BOTTLE PO SCH ×2 (06:13→11:03)
[2017-02-01] MEDS ORDERED: MAGNESIUM SULF 1 GM/DEXTROSE 100 ML IV ONE (06:58)
[2017-02-01] MEDS: NICOTINE 21 MG/24 HR PATCH TD SCH (08:17)
[2017-02-01] MEDS: FAMOTIDINE 20 MG TAB PO SCH (08:17)
[2017-02-01 08:33] VITALS: BP 124/82; PULSE 100; RESP 14; TEMP 98; O2SAT 90
[2017-02-01] MEDS ORDERED: THIAMINE HCL 100 MG TAB PO SCH (09:00)
[2017-02-01] MEDS ORDERED: NICOTINE 21 MG/24 HR PATCH TD SCH (09:00)
[2017-02-01] MEDS: INSULIN LISPRO 100 UNIT/ML SC SCH (09:15)
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
== END 2017-02-01 11:19 | disposition home or self-care (01) | DRG 86 ==
LOC: EDUNIT# → F2N 01-29 01:29 → F3N 01-30 13:21
PROVIDERS: ADMIT Surgery; ATTEND Surgery
CPT/HCPCS: 96374; G0480; J1170; J2060; J3475

== ENCOUNTER 2017-06-11 00:43 | Emergency (ER) | payer MEDICAID ==
[2017-06-11] MEDS ORDERED: ONDANSETRON 4 MG/2 ML VIAL IVP ONE (00:48)
[2017-06-11] MEDS ORDERED: NS 1,000 ML IV ONE (00:48)
[2017-06-11 01:06] LABS: % IMMATURE GRANULYOCYTES 0.2 % (0.0-1.1); ABSOLUTE IMMATURE GRANULOCYTES 0.02 10^3/uL (0.00-0.10); ADD DIFF? NO; ADD MORPH? NO; ADD SCAN? NO; ATYPICAL LYMPHOCYTE FLAG 0 (0-99); FRAGMENT RBC FLAG 0 (0-99); HEMATOCRIT 44.8 % (40.0-51.0); HEMOGLOBIN 16.5 g/dL (13.7-17.5); LEFT SHIFT FLG 0 (0-99); LIPEMIA HEMOLYSIS FLAG 90 (0-99); MEAN CELL HEMOGLOBIN 32.8 pg (27.9-34.1); MEAN CELL HEMOGLOBIN CONCENTR. 36.8 g/dL (32.4-36.7); MEAN CELL VOLUME 89.1 fL (81.5-99.8); PLATELET CLUMPS FLAG 10 (0-99); PLATELET COUNT 205 10^3/uL (150-400); RED BLOOD CELL COUNT 5.03 10^6/uL (4.40-6.38); RED CELL DISTRIBUTION WIDTH 13.7 % (11.5-15.2)
--- NOTE | 2017-06-11 01:07 | EDPHY ---
H & P Stated Complaint: vomiting blood Time Seen by Provider: 06/11/17 00:47 HPI/ROS: HPI The patient presents brought in by ambulance for vomiting with blood for the last 1 and 0.5 hr. Paramedics report that the patient initially approach there parked ambulance asking for blanket. At about 30 min later he returned, stating that he was vomiting blood. He said he had about 2 episodes of bright red vomitus. He has been vomiting throughout the entire day he says, initially clear, now bloody. He has also been drinking alcohol all day which is not unusual for him. He says he has right lower quadrant abdominal pain for the last 2 months, though actually improved today. He denies any dark or bloody stools. He says his stools are loose however. He was admitted to the hospital in January and did have a diagnosis of pancreatitis. REVIEW OF SYSTEMS Constitutional: No fever, no chills. Eyes: No discharge. ENT: No sore throat. Cardiovascular: No chest pain, no palpitations. Respiratory: No cough, no shortness of breath. Gastrointestinal: No abdominal pain, no vomiting. Genitourinary: No hematuria. Musculoskeletal: No back pain. Skin: No rashes. Neurological: No headache. PMHx: Hypertension, bipolar disorder, history of pancreatitis, history of hepatitis Soc Hx: Homeless, alcohol abuse PHYSICAL General Appearance: Alert, obviously intoxicated Eyes: Pupils equal and round no pallor or injection ENT, Mouth: Mucous membranes moist Respiratory: There are no retractions, lungs are clear to auscultation Cardiovascular: Regular rate and rhythm Gastrointestinal: Abdomen is soft and non-tender, no masses, bowel sounds normal Neurological: A&O, moves all extremities Skin: Warm and dry, no rashes Musculoskeletal: Neck is supple non tender Extremities: symmetrical, full range of motion Psychiatric: Patient is oriented X 3, there is no agitation Source: Patient, EMS Exam Limitations: Intoxication - Personal History Tetanus Vaccine Date: 2014 - Medical/Surgical History Hx Asthma: No Hx Chronic Respiratory Disease: No Hx Diabetes: No Hx Cardiac Disease: No Hx Renal Disease: No Hx Cirrhosis: No Hx Alcoholism: Yes Hx HIV/AIDS: No Hx Splenectomy or Spleen Trauma: No Other PMH: Bipolar, ETOH, HTN, PE, reflux, ETOH induced seizure - Social History Smoking Status: Heavy smoker Constitutional: Initial Vital Signs Temperature (C) 36.8 C 06/11/17 00:46 Heart Rate 95 06/11/17 00:46 Respiratory Rate 16 06/11/17 00:46 Blood Pressure 118/73 06/11/17 00:46 O2 Sat (%) 92 06/11/17 00:46 O2 Delivery Mode Room Air Allergies/Adverse Reactions: No Known Allergies Allergy (Verified 06/11/17 00:50) Home Medications: Medication Instructions Recorded NK [No Known Home Meds] 01/28/17 Medical Decision Making Differential Diagnosis: This is a 52-year-old male, history of alcohol abuse, pancreatitis, hepatitis, bipolar disorder, homelessness who presents brought in by ambulance for reported episodes of hematemesis just prior to arrival with bright red blood. The patient said he has been vomiting all day in the vomitus just recently became bloody. On exam, he has normal vital signs, he is intoxicated, abdominal exam is benign. At the end of our history and exam, the patient asked for a bologna sandwich. I explained it him that I could not provide him with this given his presenting complaint. He tells me that he pretended actually and he did not have any vomiting, but he is really hungry and would like a sandwich. Differential diagnosis includes acute alcoholic pancreatitis, hepatitis, Shanta De Leon tear, alcoholic gastritis, malingering. In the emergency department, patient was given IV fluids and Zofran. He had absolutely no ongoing vomiting or any symptoms. He slept for several hours. Labs were checked and were unremarkable. Hemoglobin was stable as compared to previous visit last month. Lipase is not elevated and liver enzymes are normal. He was quite intoxicated. I explained the patient's test results to him, he will be discharged home. He is upset about this and would like to stay in the emergency department. - Data Points Laboratory Results: Laboratory Results 06/11/17 00:45 06/11/17 00:45 06/11/17 06/11/17 00:45 00:45 WBC 9.54 10^3/uL H 10^3/uL (3.80-9.50) RBC 5.03 10^6/uL 10^6/uL (4.40-6.38) Hgb 16.5 g/dL g/dL (13.7-17.5) Hct 44.8 % % (40.0-51.0) MCV 89.1 fL fL (81.5-99.8) MCH 32.8 pg pg (27.9-34.1) MCHC 36.8 g/dL H g/dL (32.4-36.7) RDW 13.7 % % (11.5-15.2) Plt Count 205 10^3/uL 10^3/uL (150-400) MPV 9.0 fL fL (8.7-11.7) Neut % (Auto) 33.1 % L % (39.3-74.2) Lymph % (Auto) 58.3 % H % (15.0-45.0) Sullivan % (Auto) 6.5 % % (4.5-13.0) Eos % (Auto) 1.6 % % (0.6-7.6) Baso % (Auto) 0.3 % % (0.3-1.7) Nucleat RBC Rel Count 0.0 % % (0.0-0.2) Absolute Neuts (auto) 3.16 10^3/uL 10^3/uL (1.70-6.50) Absolute Lymphs (auto) 5.56 10^3/uL H 10^3/uL (1.00-3.00) Absolute Monos (auto) 0.62 10^3/uL 10^3/uL (0.30-0.80) Absolute Eos (auto) 0.15 10^3/uL 10^3/uL (0.03-0.40) Absolute Basos (auto) 0.03 10^3/uL 10^3/uL (0.02-0.10) Absolute Nucleated RBC 0.00 10^3/uL 10^3/uL (0-0.01) Immature Gran % 0.2 % % (0.0-1.1) Immature Gran # 0.02 10^3/uL 10^3/uL (0.00-0.10) Sodium 147 mEq/L H mEq/L (134-144) Potassium 3.9 mEq/L mEq/L (3.5-5.2) Chloride 105 mEq/L mEq/L (97-110) Carbon Dioxide 26 mEq/l mEq/l (22-31) Anion Gap 16 mEq/L mEq/L (8-16) BUN 11 mg/dL mg/dL (7-23) Creatinine 0.9 mg/dL mg/dL (0.7-1.3) Estimated GFR > 60 Glucose 156 mg/dL H mg/dL (70-100) Calcium 9.0 mg/dL mg/dL (8.5-10.4) Total Bilirubin 0.8 mg/dL mg/dL (0.1-1.4) Conjugated Bilirubin 0.3 mg/dL mg/dL (0.0-0.5) Unconjugated Bilirubin 0.5 mg/dL mg/dL (0.0-1.1) AST 42 IU/L IU/L (17-59) ALT 44 IU/L IU/L (21-72) Alkaline Phosphatase 78 IU/L IU/L (38-126) Total Protein 7.4 g/dL g/dL (6.3-8.2) Albumin 4.2 g/dL g/dL (3.5-5.0) Lipase 278 IU/L IU/L (23-300) Ethyl Alcohol 399 mg/dL H mg/dL (0-10) Medications Given: Discontinued Medications Sodium Chloride (Ns) 1,000 mls @ 0 mls/hr IV EDNOW ONE; Wide Open PRN Reason: Protocol Stop: 06/11/17 00:49 Last Admin: 06/11/17 00:54 Dose: 1,000 mls Ondansetron HCl (Zofran) 4 mg IVP EDNOW ONE Stop: 06/11/17 00:49 Last Admin: 06/11/17 00:54 Dose: 4 mg Departure - Departure Disposition: Home, Routine, Self-Care Clinical Impression: Alcohol intoxication Qualifiers: Complication of substance-induced condition: with delirium Qualified Code(s): F10.921 - Alcohol use, unspecified with intoxication delirium Condition: Good Instructions: Alcohol Intoxication (ED) Additional Instructions: Please return to the emergency department if you are worse in any way. Otherwise please follow-up with the [facility]. Referrals: [facility],. [Clinic] - As per Instructions
[2017-06-11 01:17] LABS: ALANINE AMINOTRANSFERASE 44 IU/L (21-72); ALBUMIN 4.2 g/dL (3.5-5.0); ALKALINE PHOSPHATASE 78 IU/L (38-126); ANION GAP 16 mEq/L (8-16); ASPARTATE AMINOTRANSFERASE 42 IU/L (17-59); BILIRUBIN,TOTAL 0.8 mg/dL (0.1-1.4); BILIRUBIN-CONJUGATED 0.3 mg/dL (0.0-0.5); BILIRUBIN-UNCONJUGATED 0.5 mg/dL (0.0-1.1); CARBON DIOXIDE 26 mEq/l (22-31); CHLORIDE 105 mEq/L (97-110); CREATININE 0.9 mg/dL (0.7-1.3); GLOMERULAR FILTRATION RATE > 60; GLUCOSE 156 mg/dL (70-100); POTASSIUM 3.9 mEq/L (3.5-5.2); SODIUM 147 mEq/L (134-144); TOTAL PROTEIN 7.4 g/dL (6.3-8.2)
[2017-06-11 01:37] LABS: ETHANOL SERUM 399 mg/dL (0-10)
[2017-06-11 02:22] VITALS: BP 113/59; PULSE 76; RESP 18; TEMP 97.9; O2SAT 93
== END 2017-06-11 02:35 | disposition home or self-care (01) ==
LOC: EDUNIT#
DX: F10.921 Alcohol use, unspecified with intoxication delirium (principal); I10 Essential (primary) hypertension; F17.200 Nicotine dependence, unspecified, uncomplicated; E86.9 Volume depletion, unspecified
CPT/HCPCS: 96374; G0480; J2405

== ENCOUNTER 2017-09-01 13:45 | Inpatient (IN) | payer MEDICAID ==
[2017-09-01] MEDS ORDERED: VANCOMYCIN HCL/NORMAL SALINE 250 ML IV ONE (14:13)
[2017-09-01 14:19] LABS: PLATELET COUNT 153 10^3/uL (150-400)
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
[2017-09-01] MEDS ORDERED: OXYCODONE/APAP 5/325 TAB PO ONE (14:28)
[2017-09-01] MEDS ORDERED: IBUPROFEN 200 MG TAB PO PRN (14:52)
[2017-09-01] MEDS ORDERED: ONDANSETRON 4 MG/2 ML VIAL IVP PRN (14:52)
[2017-09-01] MEDS ORDERED: LORazepam 1 MG TAB PO ONE (14:53)
[2017-09-01] MEDS ORDERED: LORazepam 1 MG/0.5 ML UDSYR PO PRN (14:58)
[2017-09-01] MEDS ORDERED: NS 1,000 ML IV SCH (15:00)
[2017-09-01] MEDS ORDERED: VANCOMYCIN 1 GM in NS 250 ML IV ONE (15:00)
[2017-09-01] MEDS ORDERED: fentaNYL 100 MCG/2 ML INJ IVP PRN (15:31)
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
[2017-09-01] MEDS: IBUPROFEN 600 MG TAB PO PRN (17:11)
[2017-09-01] MEDS ORDERED: IPRATROPIUM/ALBUTEROL 3 ML DEYVIAL IH PRN (17:56)
[2017-09-01] MEDS ORDERED: NS 1,000 ML IV ONE (17:58)
[2017-09-01] MEDS: oxyCODONE IR 5 MG TAB PO PRN (18:33)
[2017-09-01] MEDS: LORazepam 0.5 MG TAB PO PRN (18:33)
[2017-09-01] MEDS: NS 1,000 ML IV SCH (20:14)
[2017-09-01] MEDS: PIPERACILLIN/TAZO 3.375 GM/DEX 50 ML IV SCH (23:12)
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
[2017-09-02] MEDS: VANCOMYCIN 750 MG in NS 250 ML IV SCH ×2 (01:49→13:51)
[2017-09-02] MEDS ORDERED: VANCOMYCIN 750 MG in D5W 150 ML IV SCH (02:00)
[2017-09-02] MEDS: IBUPROFEN 600 MG TAB PO PRN ×3 (02:51→21:41)
[2017-09-02] MEDS: oxyCODONE IR 5 MG TAB PO PRN ×3 (02:51→21:41)
[2017-09-02 05:25] LABS: PLATELET COUNT 116 10^3/uL (150-400)
[2017-09-02] MEDS: PIPERACILLIN/TAZO 3.375 GM/DEX 50 ML IV SCH ×3 (06:56→23:50)
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
[2017-09-02] MEDS ORDERED: PNEUMOCOCCAL 0.5ML VACCINE VIAL IM ONE (08:08)
[2017-09-02] MEDS ORDERED: FLU VACC QS 2017-18 (3YR+)/PF 0.5 ML SYR (FLUARIX QUAD) IM ONE (08:08)
[2017-09-02] MEDS ORDERED: FAMOTIDINE 20 MG/NACL 50 ML IV SCH (09:00)
[2017-09-02] MEDS: LORazepam 2 MG/ML INJ IVP PRN ×5 (09:15→18:47)
[2017-09-02] MEDS: NICOTINE 14 MG/24 HR PATCH TD SCH (09:15)
[2017-09-02] MEDS: ENOXAPARIN 40 MG/0.4 ML SYR SC SCH (09:15)
[2017-09-02] MEDS: THIAMINE HCL 500 MG in NS 500 ML IV SCH (09:44)
[2017-09-02] MEDS: POTASSIUM CL 20 MEQ/15 ML UDCUP PO SCH (09:44)
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
--- NOTE | 2017-09-02 12:27 | ASMTCASEMG ---
Living Arrangements What is your living Answers: Alone arrangement? Who do you live with? Type Of Residence What kind of residence do Answers: Homeless you live in? Discharge Plan Comments Coordination Status Comments Notes: Pt is a 52 y/o man admitted for cellulitis. Pt is homeless. PT has been ordered and awaiting recommendations. Pt is currently on vanco. CM met w/ pt for dispo planning. CM provided pt w/ ETOH resources. Pt reports that he would like CM to reserve senior living bed at time of d/c. Pt will most likely d/c independent without any needs. CM to follow. Plan: Homeless senior living/independent Date Signed: 09/02/2017 12:26 PM Electronically Signed By:GUILLAUME Youssef
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
[2017-09-02] MEDS: ACETAMINOPHEN 325 MG TAB PO PRN (13:51)
[2017-09-02] MEDS: FAMOTIDINE 20 MG TAB PO SCH (21:39)
[2017-09-03] MEDS: NS 1,000 ML IV SCH (01:02)
[2017-09-03] MEDS: VANCOMYCIN 750 MG in NS 250 ML IV SCH ×2 (03:13→15:00)
[2017-09-03] MEDS: oxyCODONE IR 5 MG TAB PO PRN ×3 (03:26→16:00)
[2017-09-03] MEDS: IBUPROFEN 600 MG TAB PO PRN (03:26)
[2017-09-03 05:16] LABS: PLATELET COUNT 107 10^3/uL (150-400)
[2017-09-03] MEDS: PIPERACILLIN/TAZO 3.375 GM/DEX 50 ML IV SCH (06:28)
[2017-09-03] MEDS: LORazepam 2 MG/ML INJ IVP PRN (06:28)
[2017-09-03] MEDS: NICOTINE 14 MG/24 HR PATCH TD SCH (07:57)
[2017-09-03] MEDS: THIAMINE HCL 500 MG in NS 500 ML IV SCH (07:57)
[2017-09-03] MEDS: FAMOTIDINE 20 MG TAB PO SCH (08:06)
[2017-09-03] MEDS: POTASSIUM CL 20 MEQ/15 ML UDCUP PO SCH (08:06)
[2017-09-03] MEDS: ENOXAPARIN 40 MG/0.4 ML SYR SC SCH (08:16)
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
[2017-09-03] MEDS: ACETAMINOPHEN 325 MG TAB PO PRN (08:47)
[2017-09-03] MEDS: LORazepam 0.5 MG TAB PO PRN (09:30)
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
[2017-09-03] MEDS: VODKA 50 ML BOTTLE PO SCH ×2 (13:55→18:14)
[2017-09-03] MEDS: VANCOMYCIN 1 GM in NS 250 ML IV SCH (15:16)
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
[2017-09-04] MEDS: ACETAMINOPHEN 325 MG TAB PO PRN ×2 (00:05→18:48)
[2017-09-04] MEDS: FAMOTIDINE 20 MG TAB PO SCH ×3 (00:05→22:46)
[2017-09-04] MEDS: oxyCODONE IR 5 MG TAB PO PRN ×5 (00:10→23:24)
[2017-09-04] MEDS: LORazepam 0.5 MG TAB PO PRN ×2 (00:10→04:36)
[2017-09-04] MEDS: VANCOMYCIN 1 GM in NS 250 ML IV SCH ×2 (04:14→15:21)
[2017-09-04 05:54] LABS: PLATELET COUNT 157 10^3/uL (150-400)
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
[2017-09-04] MEDS: POTASSIUM CL 20 MEQ/15 ML UDCUP PO SCH (10:04)
[2017-09-04] MEDS: NICOTINE 14 MG/24 HR PATCH TD SCH (10:05)
[2017-09-04] MEDS: ENOXAPARIN 40 MG/0.4 ML SYR SC SCH (10:05)
[2017-09-04] MEDS: THIAMINE HCL 100 MG TAB PO SCH (10:06)
[2017-09-04] MEDS ORDERED: TEMAZEPAM 15 MG CAP PO PRN (11:25)
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
--- NOTE | 2017-09-04 11:41 | PCMIDPN ---
Assessment/Plan: Assessment: Left hand cellulitis covered empirically with vanc some monotherapy. No positive cultures. The erythema and swelling is significantly down. White blood cell count is normalized. No fevers. Continue IV vancomycin for now and follow clinical change. Plan: 1. Continue IV vancomycin. 2. Follow appearance of left hand. Subjective: Patient is walking around physical therapy. Left hand is loosely bandaged but erythema is less bright and swelling is decreased. No fevers Objective: Vancomycin # 3 Vital Signs Temp Pulse Resp BP Pulse Ox 37.2 C 89 18 131/87 H 92 09/04/17 11:30 09/04/17 11:30 09/04/17 11:30 09/04/17 11:30 09/04/17 11:30 Laboratory Results 09/04/17 04:44 09/04/17 04:44 09/03/17 09/04/17 09/05/17 05:59 05:59 05:59 Intake Total 3047 530 Output Total 2825 2725 Balance 222 -2195 - Physical Exam General Appearance: WD/WN, alert, non-toxic Extremities: swelling (Mild left upper extremity.), No normal inspection ( Erythema mostly dorsum of left hand.) Skin: normal color, warm/dry, No rash Neuro/Psych: alert ICD10 Worksheet Patient Problems: Problems Problem Status Onset Cellulitis Acute Acute alcohol intoxication Acute Acute bronchitis Acute Alcohol intoxication Acute Anxiety attack Acute Bronchitis Acute Chest pain Acute Excoriated rash Acute Hypoxia Acute Intracranial bleed Acute MRSA (methicillin resistant Staphylococcus aureus) Acute 06/03/15 Warfarin-induced coagulopathy Acute
[2017-09-04] MEDS: VODKA 50 ML BOTTLE PO SCH ×2 (12:52→21:27)
[2017-09-04] MEDS: IBUPROFEN 600 MG TAB PO PRN (15:06)
[2017-09-04] MEDS: VODKA 50 ML BOTTLE PO PRN (16:55)
[2017-09-04] MEDS: MELATONIN 3 MG TAB PO SCH (22:46)
[2017-09-04] MEDS: HYDROGEN PEROXIDE 236 ML BOTTLE TP PRN (22:58)
[2017-09-05] MEDS: VODKA 50 ML BOTTLE PO PRN (00:07)
[2017-09-05] MEDS: VANCOMYCIN 1 GM in NS 250 ML IV SCH ×2 (03:40→15:34)
[2017-09-05] MEDS: POTASSIUM CL 20 MEQ/15 ML UDCUP PO SCH (08:42)
[2017-09-05] MEDS: NICOTINE 14 MG/24 HR PATCH TD SCH (08:43)
[2017-09-05] MEDS: ENOXAPARIN 40 MG/0.4 ML SYR SC SCH (08:43)
[2017-09-05] MEDS: VODKA 50 ML BOTTLE PO SCH ×3 (08:43→20:43)
[2017-09-05] MEDS: oxyCODONE IR 5 MG TAB PO PRN (08:44)
[2017-09-05] MEDS: THIAMINE HCL 100 MG TAB PO SCH (08:46)
[2017-09-05] MEDS: FAMOTIDINE 20 MG TAB PO SCH ×2 (08:46→20:43)
[2017-09-05] MEDS: HYDROGEN PEROXIDE 236 ML BOTTLE TP PRN (08:47)
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
[2017-09-05] MEDS: MELATONIN 3 MG TAB PO SCH (20:43)
[2017-09-06] MEDS: VANCOMYCIN 1 GM in NS 250 ML IV SCH ×2 (03:40→15:20)
[2017-09-06] MEDS: POTASSIUM CL 20 MEQ/15 ML UDCUP PO SCH (08:00)
[2017-09-06] MEDS: VODKA 50 ML BOTTLE PO SCH ×3 (08:00→19:58)
[2017-09-06] MEDS: THIAMINE HCL 100 MG TAB PO SCH (08:01)
[2017-09-06] MEDS: FAMOTIDINE 20 MG TAB PO SCH ×2 (08:01→19:58)
[2017-09-06] MEDS: NICOTINE 14 MG/24 HR PATCH TD SCH (08:01)
[2017-09-06] MEDS ORDERED: TDAP ADULT 0.5 ML INJ (BOOSTRIX) IM ONE (09:41)
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
[2017-09-06] MEDS: ENOXAPARIN 40 MG/0.4 ML SYR SC SCH (11:33)
--- NOTE | 2017-09-06 14:56 | SOAPPROG ---
SOAP Progress Note Assessment/Plan: Assessment: L hand cellulitis -clinical appearance continues to improve Plan: -cont abx -cont TID soaks -appreciate care of hospitalist and ID teams Subjective: Hand feels better today. Objective: Vital Signs Temp Pulse Resp BP Pulse Ox 36.7 C 89 16 128/104 H 95 09/06/17 11:57 09/06/17 11:57 09/06/17 11:57 09/06/17 11:57 09/06/17 11:57 Laboratory Results 09/04/17 04:44 09/04/17 04:44 09/05/17 09/06/17 09/07/17 05:59 05:59 05:59 Intake Total 1450 775 Output Total 1700 500 Balance -250 275 L hand -makes full fist -swelling dorsal hand continues to improve, erythema resolving -I again unroofed part of the eschar, no purulence expressed today ICD10 Worksheet Patient Problems: Problems Problem Status Onset Cellulitis Acute Acute alcohol intoxication Acute Acute bronchitis Acute Alcohol intoxication Acute Anxiety attack Acute Bronchitis Acute Chest pain Acute Excoriated rash Acute Hypoxia Acute Intracranial bleed Acute MRSA (methicillin resistant Staphylococcus aureus) Acute 06/03/15 Warfarin-induced coagulopathy Acute
--- NOTE | 2017-09-06 16:36 | ASMTCMCOM ---
CM Note CM Note Notes: Pt will transition to oral antibiotics at dc. Met w/pt to see if he would want us to [facility]. He wasn't sure if [facility] would stay [facility] prison. I told him CM would stop by in AM to check in with him to see if he would like for us to reserve prison should he get dc'd tomorrow. Date Signed: 09/06/2017 04:35 PM Electronically Signed By:Doris Chatterjee RN
[2017-09-06 19:34] VITALS: RESP 14
[2017-09-06] MEDS: MELATONIN 3 MG TAB PO SCH (19:58)
[2017-09-07] MEDS: VANCOMYCIN 1 GM in NS 250 ML IV SCH (05:14)
[2017-09-07 08:13] VITALS: BP 137/82; PULSE 92; TEMP 98.8; O2SAT 96
[2017-09-07] MEDS: NICOTINE 14 MG/24 HR PATCH TD SCH (08:48)
[2017-09-07] MEDS: ENOXAPARIN 40 MG/0.4 ML SYR SC SCH (08:49)
[2017-09-07] MEDS: THIAMINE HCL 100 MG TAB PO SCH (08:49)
[2017-09-07] MEDS: FAMOTIDINE 20 MG TAB PO SCH (08:49)
[2017-09-07] MEDS: POTASSIUM CL 20 MEQ/15 ML UDCUP PO SCH (08:49)
[2017-09-07] MEDS: VODKA 50 ML BOTTLE PO SCH (08:50)
[2017-09-07] MEDS: HYDROGEN PEROXIDE 236 ML BOTTLE TP PRN (08:55)
--- NOTE | 2017-09-07 11:11 | PCMIDPN ---
Assessment/Plan: Assessment/Plan: 1. Left hand cellulitis with superficial abscess: - s/p I & D. Appreciate ortho - MRI negative for deeper infectious process - no cultures to guide therapy. -Currently on Vanco. -Will transition to oral doxy to complete therapy. Side effects of therapy reviewed with patient -See Dr. Ortiz's note regarding f/u appt at wound center on 09/13/17 at 1pm - care coordinated with case management and hospitalist team Deneen aguilar IV Subjective: afebrile. feels better. less pain. denies sob, abd pain or diarrhea. Objective: Vital Signs Temp Pulse Resp BP Pulse Ox 37.1 C 92 14 137/82 H 96 09/07/17 08:00 09/07/17 08:00 09/07/17 08:00 09/07/17 08:00 09/07/17 08:00 Microbiology 09/01/17 14:25 Blood Culture - Final Blood Laboratory Results 09/04/17 04:44 09/04/17 04:44 09/06/17 09/07/17 09/08/17 05:59 05:59 05:59 Intake Total 775 275 Output Total 500 Balance 275 275 - Physical Exam General Appearance: alert, no apparent distress Respiratory: lungs clear Extremities: No swelling (LE) Skin: erythema (left hand with mild erythema around open superficial wound where I & D done. cellulitis of the hand has resolved. no cellulitis on forearm. ) ICD10 Worksheet Patient Problems: Problems Problem Status Onset Cellulitis Acute Acute alcohol intoxication Acute Acute bronchitis Acute Alcohol intoxication Acute Anxiety attack Acute Bronchitis Acute Chest pain Acute Excoriated rash Acute Hypoxia Acute Intracranial bleed Acute MRSA (methicillin resistant Staphylococcus aureus) Acute 06/03/15 Warfarin-induced coagulopathy Acute
--- NOTE | 2017-09-07 11:40 | ASMTCMCOM ---
CM Note CM Note Notes: Met w/pt re; dc poc. [facility] bed reserved for pt, RX sent to [facility] [address], RX covered at 100%. Also gave bus pass and tshirt. [facility], brochure w/ address given. DC Plan: [facility] Date Signed: 09/07/2017 11:39 AM Electronically Signed By:Erica Nixon RN
--- NOTE | 2017-09-07 14:17 | GDS ---
[f rep st] DISCHARGE SUMMARY DISCHARGE DIAGNOSES: 1. Left hand cellulitis with superficial abscess. 2. History of alcohol abuse. 3. Hypokalemia. 4. Hypertension. 5. Bipolar disorder. 6. Tobacco abuse. 7. Sepsis. 8. Insomnia. CONSULTATIONS: 1. Orthopedics. 2. Infectious Disease. STUDIES AND PROCEDURES: 1. Upper extremity MRI. 2. I and D. PHYSICAL EXAM: GENERAL: The patient is alert and oriented, in no acute distress. I have seen and e valuated the patient on the day of discharge. VITAL SIGNS: Afebrile at 37.1, pulse is 92, respirato ry rate 14, blood pressure is 137/82, saturating 96% on room air. HOSPITAL COURSE: The patient is a 52-year-old male who presented to the emergency room with increase d erythema and pain on his left hand. He was evaluated and diagnosed with: 1. Left hand cellulitis with superficial abscess. During this hospitalization, he received signific ant wound care, as well as consultation from Orthopedics and Infectious Disease. He was treated with IV antibiotic therapy and has been transitioned to doxycycline to be discharged home. He has an renata ointment with the [facility] in the outpatient setting and will follow up with them. 2. Alcohol abuse. Patient states that he does not wish to discontinue his alcohol consumption. He has not gone through withdrawal during this hospitalization and has received supportive care. 3. Hypokalemia. This has been replaced and resolved. 4. Hypertension. This is stable. 5. Bipolar disorder. 6. Tobacco abuse. Cessation education has been provided. 7. Sepsis. This has resolved. DISPOSITION: The patient will be discharged [facility] at the detention. There are no pending studies. DISCHARGE MEDICATIONS: Please refer to EMR form. I have provided the patient a prescription for dox ycycline. FOLLOWUP: Will be at [facility] on 09/13/2017 at 1 p.m. I spent greater than 35 minutes in the care, coordination, and management of this patient's dispositi on. /[id number]/MODL
== END 2017-09-07 11:34 | disposition home or self-care (01) | DRG 872 ==
LOC: F3E 15:13
PROVIDERS: ADMIT Internal Medicine; ATTEND Internal Medicine
DX: A41.9 Sepsis, unspecified organism (principal); L03.114 Cellulitis of left upper limb; L02.512 Cutaneous abscess of left hand; I10 Essential (primary) hypertension; E87.6 Hypokalemia; F31.9 Bipolar disorder, unspecified; G47.00 Insomnia, unspecified; F10.10 Alcohol abuse, uncomplicated; Z72.0 Tobacco use; Z59.0 Homelessness; X77.8XXA Intentional self-harm by other hot objects, initial encounter; Z23 Encounter for immunization
CPT/HCPCS: 97116-GP; 97161-GP; 97166-GO; G0008; G0009; J1650; J2060; J2405; J2543; J3370; J3411